=== PATIENT | female | born 1945 | race Caucasian/White ===

== ENCOUNTER 2018-03-27 13:52 | Emergency (ER) | payer BC, MEDICARE ==
[2018-03-27 14:09] VITALS: TEMP 98.3; O2SAT 100
[2018-03-27] MEDS ORDERED: MORPHINE SULFATE INJ 10 MG/ML VIAL IM ONE (14:17)
--- NOTE | 2018-03-27 14:21 | ED.PDOC ---
History of Present Illness - General Chief Complaint: Trauma Stated Complaint: s/p fall Time Seen by Provider: 03/27/18 14:16 Source: patient Exam Limitations: clinical condition - PT CHRONIC VENT, UNABLE TO VERBALLY COMMUNICATE - History of Present Illness Initial Comments: PT WAS BEING ASSISTED TO BEDSIDE TOILET BY STAFF WHEN SHE FELL ACCORDING TO NURSING REPORT. C/O PAIN TO R ARM AND KNEE, NO LOC Severity: mild Improving Factors: nothing Worsening Factors: movement, other - PALPATION Associated Symptoms: denies symptoms Allergies/Adverse Reactions: Allergies Codeine Allergy (Verified 01/06/16 05:22) Sulfa Antibiotics Allergy (Verified 01/06/16 05:22) Home Medications: Ambulatory Orders ALPRAZolam [Xanax] 0.5 mg PEG BID 12/19/15 Acetaminophen [Acetaminophen ER] 650 mg PEG Q6H PRN 12/19/15 Benzonatate 100 mg PEG TID PRN 12/19/15 Bisacodyl [Dulcolax] 10 mg VT DAILY PRN 12/19/15 Bupropion HCl [Bupropion HCl Sr] 150 mg PEG DAILY 12/19/15 Diphenhydramine HCl 25 mg PEG Q6H PRN 12/19/15 Famotidine 20 mg PEG BID 12/19/15 Furosemide 40 mg PEG DAILY 12/19/15 Insulin Aspart [Novolog] 100 unit SC Q6H 12/19/15 Melatonin 5 mg PEG BEDTIME 12/19/15 Metoclopramide HCl 5 mg PEG Q6H 12/19/15 Metoprolol Tartrate 25 mg PEG BID 12/19/15 Polyvinyl Alcohol [Artificial Tears] 1.4 % OP QID PRN 12/19/15 Pravastatin Sodium [Pravachol] 20 mg PEG BEDTIME 12/19/15 Quetiapine Fumarate 50 mg PEG .0800/1400 12/19/15 Sertraline HCl [Zoloft] 100 mg PEG DAILY 12/19/15 Sucralfate 1 gm PEG Q6H 12/19/15 Theophylline 37.5 ml PEG BID 12/19/15 Tramadol HCl 50 mg PEG Q8H PRN 12/19/15 predniSONE [Prednisone] 10 mg PEG DAILY 12/19/15 Budesonide Nebs [Pulmicort Respules] 0.5 mg NEB BID 03/27/18 Chlorhexidine Gluconate (Mouth [Chlorhexidine Gluconate] 15 ml MT Q4H 03/27/18 Docusate Sodium 100 mg PEG DAILY 03/27/18 Levalbuterol Nebs [Xopenex NEBS] 0.63 mg NEB Q3H PRN 03/27/18 Levalbuterol Nebs [Xopenex NEBS] 1.25 mg NEB Q6H 03/27/18 Lidocaine HCl (Cardiac) [Lidocaine HCl] 20 mg IV Q6H PRN 03/27/18 Loratadine [Claritin] 10 mg PEG DAILY 03/27/18 Magnesium Hydroxide [Milk Of Magnesia] 30 ml PEG DAILY PRN 03/27/18 Meloxicam 15 mg PEG BEDTIME 03/27/18 Multiple Vitamins W/ Minerals [Multivitamin Adults] 1 tab PEG DAILY 03/27/18 Nystatin (Topical) [Nystatin] 100,000 unit EX BID 03/27/18 Nystatin (Topical) [Nystatin] 100,000 unit EX Q6H PRN 03/27/18 Potassium Chloride Elixir [Kaochlor Liquid] 7.5 ml PEG BID 03/27/18 Promethazine HCl 25 mg PEG Q8H PRN 03/27/18 Sennosides [Senokot] 8.6 mg PEG JOAQUIN-OTH-DAY 03/27/18 Review of Systems - Review of Systems Constitutional: States: no symptoms reported EENTM: States: no symptoms reported Respiratory: Denies: short of breath Cardiology: Denies: chest pain Gastrointestinal/Abdominal: Denies: abdominal pain Genitourinary: States: no symptoms reported Musculoskeletal: States: joint pain. Denies: back pain, neck pain Skin: States: other - BRUISING Neurological: States: no symptoms reported Endocrine: States: no symptoms reported Hematologic/Lymphatic: States: no symptoms reported Unable to Obtain Due To: other - ROS MAY BE LIMITED PT IS NON VERBAL SECONDARY TO VENT Past Medical History (General) - Patient Medical History Hx Seizures: Yes Hx Stroke: No Hx Dementia: Yes Hx Asthma: No Hx of COPD: Yes Hx Cardiac Disorders: No Hx Congestive Heart Failure: No Hx Pacemaker: No Hx Hypertension: Yes Hx Thyroid Disease: No Hx Diabetes: Yes Hx Gastroesophageal Reflux: Yes - g-tube in place Hx Renal Disease: No Hx Cancer: No Hx of HIV: No Hx Hepatitis C: No Hx MRSA: No Surgical History: appendectomy, Hysterectomy - Vaccination History Hx Influenza Vaccination: Yes Hx Pneumococcal Vaccination: Yes - Social History Hx Tobacco Use: Yes Hx Chewing Tobacco Use: No Hx Alcohol Use: No Hx Substance Use: No Hx Substance Use Treatment: No Hx Depression: No Hx Physical Abuse: No Hx Emotional Abuse: No Hx Suspected Abuse: No - Activities of Daily Living Assisted/Assisted Living (if applicable):: Fernando Kim - Female History Patient : No Family Medical History - Family History Mother Family History: Unknown Living Status: Unknown Physical Exam - Physical Exam General Appearance: Alert, No apparent distress, Obese Eye Exam: bilateral normal Ears, Nose, Throat: hearing grossly normal, normal ENT inspection Neck: non-tender, full range of motion, supple Respiratory: lungs clear - WITH VENT Cardiovascular/Chest: regular rate, rhythm, no murmur Peripheral Pulses: dorsalis pedis,right: 1+, posterior tibialis,right: 1+ Gastrointestinal/Abdominal: non tender, soft, no organomegaly Extremity: other - BRUISING AND TTP R UPPER ARM. NO FOREARM TTP, NVI, ECCHYMOSIS AND SWELLING TO R MEDIAL KNEE, DISTAL FEMUR AND PROXIMAL TIBIA. 2+ PITTING EDEMA, NVI Neurologic: no motor/sensory deficits, alert, normal mood/affect Skin Exam: other - ECCHYMOSIS NOTED ABOVE Lymphatic: no adenopathy Progress - EKG/XRAY/CT XRAY: pelvis - BARON Xray Comments: CXR, HUMERUS, ELBOW, FEMUR, TIB/FIB BARON Departure - Departure Clinical Impression: Contusion of knee, right Qualifiers: Encounter type: initial encounter Qualified Code(s): S80.01XA - Contusion of right knee, initial encounter Contusion, upper arm Qualifiers: Encounter type: initial encounter Laterality: right Qualified Code(s): S40.021A - Contusion of right upper arm, initial encounter Time of Disposition: 16:49 Disposition: Discharge to Home or Self Care Departure Forms: ED Discharge - Pt. Copy, Patient Portal Self Enrollment Instructions: DI for Trauma, Contusion (DC) Referrals: LEONARDO LAGUNAS [Primary Care Provider] - 1-2 Weeks Home Medications: Ambulatory Orders ALPRAZolam [Xanax] 0.5 mg PEG BID 12/19/15 Acetaminophen [Acetaminophen ER] 650 mg PEG Q6H PRN 12/19/15 Benzonatate 100 mg PEG TID PRN 12/19/15 Bisacodyl [Dulcolax] 10 mg VT DAILY PRN 12/19/15 Bupropion HCl [Bupropion HCl Sr] 150 mg PEG DAILY 12/19/15 Diphenhydramine HCl 25 mg PEG Q6H PRN 12/19/15 Famotidine 20 mg PEG BID 12/19/15 Furosemide 40 mg PEG DAILY 12/19/15 Insulin Aspart [Novolog] 100 unit SC Q6H 12/19/15 Melatonin 5 mg PEG BEDTIME 12/19/15 Metoclopramide HCl 5 mg PEG Q6H 12/19/15 Metoprolol Tartrate 25 mg PEG BID 12/19/15 Polyvinyl Alcohol [Artificial Tears] 1.4 % OP QID PRN 12/19/15 Pravastatin Sodium [Pravachol] 20 mg PEG BEDTIME 12/19/15 Quetiapine Fumarate 50 mg PEG .0800/1400 12/19/15 Sertraline HCl [Zoloft] 100 mg PEG DAILY 12/19/15 Sucralfate 1 gm PEG Q6H 12/19/15 Theophylline 37.5 ml PEG BID 12/19/15 Tramadol HCl 50 mg PEG Q8H PRN 12/19/15 predniSONE [Prednisone] 10 mg PEG DAILY 12/19/15 Budesonide Nebs [Pulmicort Respules] 0.5 mg NEB BID 03/27/18 Chlorhexidine Gluconate (Mouth [Chlorhexidine Gluconate] 15 ml MT Q4H 03/27/18 Docusate Sodium 100 mg PEG DAILY 03/27/18 Levalbuterol Nebs [Xopenex NEBS] 0.63 mg NEB Q3H PRN 03/27/18 Levalbuterol Nebs [Xopenex NEBS] 1.25 mg NEB Q6H 03/27/18 Lidocaine HCl (Cardiac) [Lidocaine HCl] 20 mg IV Q6H PRN 03/27/18 Loratadine [Claritin] 10 mg PEG DAILY 03/27/18 Magnesium Hydroxide [Milk Of Magnesia] 30 ml PEG DAILY PRN 03/27/18 Meloxicam 15 mg PEG BEDTIME 03/27/18 Multiple Vitamins W/ Minerals [Multivitamin Adults] 1 tab PEG DAILY 03/27/18 Nystatin (Topical) [Nystatin] 100,000 unit EX BID 03/27/18 Nystatin (Topical) [Nystatin] 100,000 unit EX Q6H PRN 03/27/18 Potassium Chloride Elixir [Kaochlor Liquid] 7.5 ml PEG BID 03/27/18 Promethazine HCl 25 mg PEG Q8H PRN 03/27/18 Sennosides [Senokot] 8.6 mg PEG JOAQUIN-OTH-DAY 03/27/18
--- NOTE | 2018-03-27 15:17 | RAD ---
EXAM DESCRIPTION: Femur,Right CLINICAL HISTORY: 72 years Female, FALL WHILE GETTING UP TO BEDSIDE TOILET COMPARISON: None. FINDINGS: Two views of the right femur demonstrate extensive subcutaneous edema and swelling in the prepatellar region above and below the knee joint. The patella as well as the femur appear intact. No fracture or dislocation is seen. IMPRESSION: Soft tissue swelling anteriorly at the knee with intact femur Electronically signed by: Chun Prasad MD 03/27/2018 3:16 PM [facility]
--- NOTE | 2018-03-27 15:18 | RAD ---
EXAM DESCRIPTION: Chest,1 View CLINICAL HISTORY: 72 years Female, FALL WHILE GETTING UP TO BEDSIDE TOILET COMPARISON: None. TECHNIQUE: AP portable chest. FINDINGS: Fair expansion of the lungs is evident without consolidation, layering effusion, or large mass. Heart size and vascularity appear normal for AP technique and degree of inspiration. No gross bony, hilar, or mediastinal abnormalities are noted. IMPRESSION: Normal chest, one view Electronically signed by: Chun Prasad MD 03/27/2018 3:16 PM [facility] [employer]
--- NOTE | 2018-03-27 15:20 | RAD ---
EXAM DESCRIPTION: Humerus,Right CLINICAL HISTORY: 72 years Female, FALL WHILE GETTING UP TO BEDSIDE TOILET COMPARISON: None. FINDINGS: Advanced degenerative changes involving the proximal humeral head is present with narrowing of the subacromial space AC joint arthropathy and advanced glenohumeral degenerative changes. The humeral shaft is intact. Distal humerus in the region of the elbow particularly in the region of the lateral humeral epicondyles and articular surface demonstrates subtle lucency and is suspicious for a nondisplaced fracture at the elbow. A formal three view elbow series including a high quality true lateral view of the elbow to assess for hemarthrosis is recommended. IMPRESSION: 1. Abnormal distal humerus with some lucency overlying the lateral humeral epicondyles suspicious for either a skinfold or nondisplaced fracture. A formal elbow series recommended. 2. Advanced degenerative changes of the proximal humerus and humeral head without fracture of the humeral shaft Electronically signed by: Chun Prasad MD 03/27/2018 3:19 PM [employer]
--- NOTE | 2018-03-27 15:21 | RAD ---
EXAM DESCRIPTION: Pelvis CLINICAL HISTORY: 72 years Female, FALL WHILE GETTING UP TO BEDSIDE TOILET COMPARISON: None. FINDINGS: A single view of the pelvis is limited in quality by the patient's large size and overlying soft tissues. Bony pelvic ring appears intact and no gross injury or abnormality of the iliac wings or superior and inferior pubic rami noted. The hips appear normally aligned. IMPRESSION: Negative pelvis one view. Electronically signed by: Chun Prasad MD 03/27/2018 3:20 PM [facility]
--- NOTE | 2018-03-27 15:22 | RAD ---
EXAM DESCRIPTION: Tibia/Fibula,Right CLINICAL HISTORY: 72 years Female, FALL WHILE GETTING UP TO BEDSIDE TOILET COMPARISON: None FINDINGS: Soft tissue swelling and subcutaneous edema and possibly a subcutaneous hematoma the lateral aspect of the knee is evident. Tibia and fibula are osteopenic. No underlying fracture or deformity is seen. IMPRESSION: Soft tissue swelling and subcutaneous hematoma the lateral aspect of the knee. Osteopenic leg without acute fracture. Electronically signed by: Chun Prasad MD 03/27/2018 3:21 PM [facility]
--- NOTE | 2018-03-27 16:29 | RAD ---
EXAM: Elbow,Right 2 Views CLINICAL INDICATION: 72-year-old female with pain status post fall. TECHNIQUE: Two views of the RIGHT elbow were obtained in AP, and lateral projections. COMPARISON: None. FINDINGS: There is no fracture or dislocation. The joint spaces are preserved. Reticulation of the soft tissues may reflect sequela of trauma. IMPRESSION: Reticulation of the soft tissues may reflect sequela of trauma without fracture or dislocation. Electronically signed by: Merced Lemus MD 03/27/2018 4:28 PM [facility]
[2018-03-27 17:10] VITALS: BP 136/81
== END 2018-03-27 17:10 | disposition home or self-care (01) ==
LOC: ER 13:52
DX: S80.01XA Contusion of right knee, initial encounter (principal); S40.021A Contusion of right upper arm, initial encounter; Z99.11 Dependence on respirator [ventilator] status; J44.9 Chronic obstructive pulmonary disease, unspecified; I10 Essential (primary) hypertension; E11.9 Type 2 diabetes mellitus without complications; K21.9 Gastro-esophageal reflux disease without esophagitis; F03.90 Unspecified dementia, unspecified severity, without behavioral disturbance, psychotic disturbance, mood disturbance, and anxiety; Z87.891 Personal history of nicotine dependence; Z79.899 Other long term (current) drug therapy; Z88.5 Allergy status to narcotic agent; Z88.2 Allergy status to sulfonamides; W18.39XA Other fall on same level, initial encounter; Y92.129 Unspecified place in nursing home as the place of occurrence of the external cause
CPT/HCPCS: 71045; 72170; 73060; 73070; 73551; 73590; 94002; J2270

== ENCOUNTER 2018-10-20 22:58 | Emergency (ER) | payer BC, MEDICARE ==
--- NOTE | 2018-10-20 23:18 | ED.PDOC ---
History of Present Illness - General Chief Complaint: General Stated Complaint: WEAKNESS Time Seen by Provider: 10/20/18 23:11 Source: EMS notes reviewed, family - History of Present Illness Initial Comments: THIS PATIENT CFOMES MIGUEL JALLOH, A VENTED PATIENT THAT IS USUALLY ALERT AND HELPFUL TO GO TO THE BATHROOM. TODAY SHE WAS PLACED IN A BEDSIDE COMODE AND SHE FELL AND INJURED THE RIGHT KNEE AND ALSO SUSTAINED A SKIN TEAR ON THE LEFT WRIST. THE MEDICS ALSO NOTED THAT SHE HAS A FEVER OF 103 DEGREES. THE PATIENT VOICES THAT SHE HAS VOMITED TODAY. Occurred: this evening Severity: moderate Injuries/Pain Location: lower extremity Reason for Fall: lightheaded, other - WEAKNESS Loss of Consciousness: no loss of consciousness Improving Factors: nothing Worsening Factors: nothing Associated Symptoms (Fall): nausea/vomiting Allergies/Adverse Reactions: Allergies Codeine Allergy (Verified 01/06/16 05:22) Sulfa Antibiotics Allergy (Verified 01/06/16 05:22) Home Medications: Ambulatory Orders ALPRAZolam [Xanax] 0.5 mg PEG BID 12/19/15 Acetaminophen [Acetaminophen ER] 650 mg PEG Q6H PRN 12/19/15 Benzonatate 100 mg PEG TID PRN 12/19/15 Bisacodyl [Dulcolax] 10 mg AL DAILY PRN 12/19/15 Bupropion HCl [Bupropion HCl Sr] 150 mg PEG DAILY 12/19/15 Diphenhydramine HCl 25 mg PEG Q6H PRN 12/19/15 Famotidine 20 mg PEG BID 12/19/15 Furosemide 40 mg PEG DAILY 12/19/15 Insulin Aspart [Novolog] 100 unit SC Q6H 12/19/15 Melatonin 5 mg PEG BEDTIME 12/19/15 Metoclopramide HCl 5 mg PEG Q6H 12/19/15 Metoprolol Tartrate 25 mg PEG BID 12/19/15 Polyvinyl Alcohol [Artificial Tears] 1.4 % OP QID PRN 12/19/15 Pravastatin Sodium [Pravachol] 20 mg PEG BEDTIME 12/19/15 Quetiapine Fumarate 50 mg PEG .0800/1400 12/19/15 Sertraline HCl [Zoloft] 100 mg PEG DAILY 12/19/15 Sucralfate 1 gm PEG Q6H 12/19/15 Theophylline 37.5 ml PEG BID 12/19/15 Tramadol HCl 50 mg PEG Q8H PRN 12/19/15 predniSONE [Prednisone] 10 mg PEG DAILY 12/19/15 Budesonide Nebs [Pulmicort Respules] 0.5 mg NEB BID 03/27/18 Chlorhexidine Gluconate (Mouth [Chlorhexidine Gluconate] 15 ml MT Q4H 03/27/18 Docusate Sodium 100 mg PEG DAILY 03/27/18 Levalbuterol Nebs [Xopenex NEBS] 0.63 mg NEB Q3H PRN 03/27/18 Levalbuterol Nebs [Xopenex NEBS] 1.25 mg NEB Q6H 03/27/18 Lidocaine HCl (Cardiac) [Lidocaine HCl] 20 mg IV Q6H PRN 03/27/18 Loratadine [Claritin] 10 mg PEG DAILY 03/27/18 Magnesium Hydroxide [Milk Of Magnesia] 30 ml PEG DAILY PRN 03/27/18 Meloxicam 15 mg PEG BEDTIME 03/27/18 Multiple Vitamins W/ Minerals [Multivitamin Adults] 1 tab PEG DAILY 03/27/18 Nystatin (Topical) [Nystatin] 100,000 unit EX BID 03/27/18 Nystatin (Topical) [Nystatin] 100,000 unit EX Q6H PRN 03/27/18 Potassium Chloride Elixir [Kaochlor Liquid] 7.5 ml PEG BID 03/27/18 Promethazine HCl 25 mg PEG Q8H PRN 03/27/18 Sennosides [Senokot] 8.6 mg PEG JOAQUIN-OTH-DAY 03/27/18 Review of Systems - Review of Systems Constitutional: States: fever, weakness EENTM: States: no symptoms reported Respiratory: States: no symptoms reported, short of breath, other - ON A VENT Cardiology: States: no symptoms reported Gastrointestinal/Abdominal: States: no symptoms reported Genitourinary: States: no symptoms reported Musculoskeletal: States: joint pain, joint swelling Skin: States: other - SKIN TEAR Neurological: States: no symptoms reported Hematologic/Lymphatic: States: no symptoms reported Past Medical History (General) - Patient Medical History Hx Seizures: Yes Hx Stroke: No Hx Dementia: Yes Hx Asthma: No Hx of COPD: Yes Hx Cardiac Disorders: No Hx Congestive Heart Failure: No Hx Pacemaker: No Hx Hypertension: Yes Hx Thyroid Disease: No Hx Diabetes: Yes Hx Gastroesophageal Reflux: Yes - g-tube in place Hx Renal Disease: No Hx Cancer: No Hx of HIV: No Hx Hepatitis C: No Hx MRSA: No - Vaccination History Hx Influenza Vaccination: Yes Hx Pneumococcal Vaccination: Yes - Social History Hx Tobacco Use: Yes Hx Chewing Tobacco Use: No Hx Alcohol Use: No Hx Substance Use: No Hx Substance Use Treatment: No Hx Depression: No Hx Physical Abuse: No Hx Emotional Abuse: No Hx Suspected Abuse: No - Female History Patient : No Physical Exam - Physical Exam General Appearance: Alert, Obese, Well Developed, Well Hydrated Head Injury: no evidence of injury Eye Exam: bilateral normal ENT Exam: hearing grossly normal, no evidence of ENT injury Peripheral Pulses: radial,right: 2+, radial,left: 2+ Cardiovascular/Respiratory: regular rate, rhythm, no M/R/G, normal peripheral pulses, no JVD, tachycardia, other - THE ATIENT ON A VENT. RHONCHI NOTED ON THE LEFT UPPER L[place]. Gastrointestinal/Abdominal: normal bowel sounds, soft, no organomegaly, distended Extremity Exam: other - SKIN TEAR, BRUISING AND SWELLING TO THE RIGHT KNEE, GOOD ROM. SKIN TEAR TO THE LEFT WRIST Neurologic: alert, normal mood/affect Skin Exam: normal color Progress - Progress Progress: 10/21/18 02:09 10/20/18 22:55 CBC (AUTOMATED) W/AUTO DIFF Stat DIFFERENTIAL,MANUAL BY FLAGS Stat Laboratory Results WBC 23.5 K/mm3 (4.8-10.8) H* 10/20/18 22:55 RBC 4.40 M/mm3 (4.20-5.40) 10/20/18 22:55 Hgb 11.3 gm/dL (12.0-16.0) L 10/20/18 22:55 Hct 35.3 % (36.0-47.0) L 10/20/18 22:55 MCV 80.3 fl (81.0-99.0) L 10/20/18 22:55 MCH 25.6 pg (27.0-31.0) L 10/20/18 22:55 MCHC 31.9 g/dL (33.0-37.0) L 10/20/18 22:55 RDW 18.6 % (11.5-14.5) H 10/20/18 22:55 Plt Count 254 K/mm3 (130-400) 10/20/18 22:55 MPV 7.0 fl (7.40-10.4) L 10/20/18 22:55 Absolute Neuts (auto) 20.20 K/uL (1.8-6.8) H 10/20/18 22:55 Absolute Lymphs (auto) 1.80 K/uL (1.0-3.4) 10/20/18 22:55 Absolute Monos (auto) 1.20 K/uL (0.2-0.8) H 10/20/18 22:55 Absolute Eos (auto) 0.10 K/uL (0.0-0.4) 10/20/18 22:55 Absolute Basos (auto) 0.10 K/uL (0.0-0.1) 10/20/18 22:55 Neutrophils % 86.2 % (42.0-78.0) H 10/20/18 22:55 Lymphocytes % 7.7 % (20.0-50.0) L 10/20/18 22:55 Monocytes % 5.1 % (2.0-9.0) 10/20/18 22:55 Eosinophils % 0.4 % (1.0-5.0) L 10/20/18 22:55 Basophils % 0.6 % (0.0-2.0) 10/20/18 22:55 pCO2 60 mmHg (32-45) H 10/20/18 23:55 pO2 97 mmHg (83-108) 10/20/18 23:55 HCO3 31.9 mmol/L 10/20/18 23:55 ABG pH 7.350 (7.35-7.45) 10/20/18 23:55 ABG O2 Saturation 98.1 % (95.0-99.0) 10/20/18 23:55 ABG Base Excess 5.4 mmol/L 10/20/18 23:55 ABG Deoxyhemoglobin 1.9 % (0.0-5.0) 10/20/18 23:55 Oxyhemoglobin % 95.7 % (94.0-98.0) 10/20/18 23:55 Carboxyhemoglobin % 0.0 % (0.5-1.5) L 10/20/18 23:55 Methemoglobin % Sat 2.4 % (0.0-1.5) H 10/20/18 23:55 Calc Total Hemoglobin 10.3 g/dL (12.0-16.0) L 10/20/18 23:55 Sodium 134 mmol/L (135-145) L 10/20/18 22:55 Potassium 3.5 mmol/L (3.6-5.0) L 10/20/18 22:55 Chloride 95 mmol/L (101-111) L 10/20/18 22:55 Carbon Dioxide 28 mmol/L (21-31) 10/20/18 22:55 Anion Gap 14.5 (12-18) 10/20/18 22:55 BUN 13 mg/dL (7-18) 10/20/18 22:55 Creatinine 1.31 mg/dL (0.6-1.3) H 10/20/18 22:55 BUN/Creatinine Ratio 9.9 (10-20) L 10/20/18 22:55 Random Glucose 159 mg/dL (70-105) H 10/20/18 22:55 Serum Osmolality 271.7 mOsm/L (275-295) L 10/20/18 22:55 Lactic Acid 1.0 mmol/L (0.5-2.2) 10/20/18 23:11 Calcium 8.8 mg/dL (8.4-10.2) 10/20/18 22:55 Total Bilirubin 0.6 mg/dL (0.2-1.0) 10/20/18 22:55 AST 32 IU/L (10-42) 10/20/18 22:55 ALT 20 IU/L (10-60) 10/20/18 22:55 Alkaline Phosphatase 54 IU/L (42-121) 10/20/18 22:55 B-Natriuretic Peptide 340.0 pg/ml (0-100) H* 10/20/18 22:55 Serum Total Protein 7.2 gm/dL (6.4-8.2) 10/20/18 22:55 Albumin 3.7 g/dl (3.2-5.5) 10/20/18 22:55 Globulin 3.5 gm/dL (2.3-3.5) 10/20/18 22:55 Albumin/Globulin Ratio 1.1 (1.1-1.9) 10/20/18 22:55 Urine Color Yellow (Yellow) 10/21/18 00:40 Urine Appearance Clear (Clear) 10/21/18 00:40 Urine pH 7.5 (4.5-7.8) 10/21/18 00:40 Ur Specific [place] 1.020 (1.005-1.030) 10/21/18 00:40 Urine Protein 30 mg/dL 10/21/18 00:40 Urine Glucose (UA) Negative mg/dL (Negative) 10/21/18 00:40 Urine Ketones Negative mg/dL (NEGATIVE) 10/21/18 00:40 Urine Blood Negative (Negative) 10/21/18 00:40 Urine Nitrite Negative 10/21/18 00:40 Urine Bilirubin Negative (NEGATIVE) 10/21/18 00:40 Urine Urobilinogen 0.2 mg/dL (0.2-1.0) 10/21/18 00:40 Ur Leukocyte Esterase Negative (Negative) 10/21/18 00:40 Urine RBC 0 /hpf 10/21/18 00:40 Urine WBC 0 /hpf 10/21/18 00:40 Ur Epithelial Cells 0 /hpf 10/21/18 00:40 Urine Bacteria 0 10/21/18 00:40 10/21/18 02:10 THE CXR AND THE URINE WERE NORMAL. I HAVE LOGGED ROLL THE PATIENT AND THERE ARE NO PRESSURE WOUND NOTED, BUT IT IS NOTED THAT ON THE LEFT ANDOMINAL AND LEFT FLANK THERE IS A CELULLITIS, MOST LIKELY THE SOURCE OF THE FEVER. Departure - Departure Clinical Impression: Cellulitis, abdominal wall Time of Disposition: 02:15 Disposition: Discharge to SNF Condition: Fair Departure Forms: ED Discharge - Pt. Copy, Patient Portal Self Enrollment Referrals: LEONARDO LAGUNAS [Primary Care Provider] - 1-2 Weeks Home Medications: Ambulatory Orders ALPRAZolam [Xanax] 0.5 mg PEG BID 12/19/15 Acetaminophen [Acetaminophen ER] 650 mg PEG Q6H PRN 12/19/15 Benzonatate 100 mg PEG TID PRN 12/19/15 Bisacodyl [Dulcolax] 10 mg AL DAILY PRN 12/19/15 Bupropion HCl [Bupropion HCl Sr] 150 mg PEG DAILY 12/19/15 Diphenhydramine HCl 25 mg PEG Q6H PRN 12/19/15 Famotidine 20 mg PEG BID 12/19/15 Furosemide 40 mg PEG DAILY 12/19/15 Insulin Aspart [Novolog] 100 unit SC Q6H 12/19/15 Melatonin 5 mg PEG BEDTIME 12/19/15 Metoclopramide HCl 5 mg PEG Q6H 12/19/15 Metoprolol Tartrate 25 mg PEG BID 12/19/15 Polyvinyl Alcohol [Artificial Tears] 1.4 % OP QID PRN 12/19/15 Pravastatin Sodium [Pravachol] 20 mg PEG BEDTIME 12/19/15 Quetiapine Fumarate 50 mg PEG .0800/1400 12/19/15 Sertraline HCl [Zoloft] 100 mg PEG DAILY 12/19/15 Sucralfate 1 gm PEG Q6H 12/19/15 Theophylline 37.5 ml PEG BID 12/19/15 Tramadol HCl 50 mg PEG Q8H PRN 12/19/15 predniSONE [Prednisone] 10 mg PEG DAILY 12/19/15 Budesonide Nebs [Pulmicort Respules] 0.5 mg NEB BID 03/27/18 Chlorhexidine Gluconate (Mouth [Chlorhexidine Gluconate] 15 ml MT Q4H 03/27/18 Docusate Sodium 100 mg PEG DAILY 03/27/18 Levalbuterol Nebs [Xopenex NEBS] 0.63 mg NEB Q3H PRN 03/27/18 Levalbuterol Nebs [Xopenex NEBS] 1.25 mg NEB Q6H 03/27/18 Lidocaine HCl (Cardiac) [Lidocaine HCl] 20 mg IV Q6H PRN 03/27/18 Loratadine [Claritin] 10 mg PEG DAILY 03/27/18 Magnesium Hydroxide [Milk Of Magnesia] 30 ml PEG DAILY PRN 03/27/18 Meloxicam 15 mg PEG BEDTIME 03/27/18 Multiple Vitamins W/ Minerals [Multivitamin Adults] 1 tab PEG DAILY 03/27/18 Nystatin (Topical) [Nystatin] 100,000 unit EX BID 03/27/18 Nystatin (Topical) [Nystatin] 100,000 unit EX Q6H PRN 03/27/18 Potassium Chloride Elixir [Kaochlor Liquid] 7.5 ml PEG BID 03/27/18 Promethazine HCl 25 mg PEG Q8H PRN 03/27/18 Sennosides [Senokot] 8.6 mg PEG JOAQUIN-OTH-DAY 03/27/18 Additional Instructions: ZOSYN 3.375 IVPG Q 6 HRS VANCOMYCIN 100 MG IVPB Q 12 HRS.
[2018-10-20] MEDS ORDERED: ONDANSETRON INJ 4 MG/2 ML VIAL ONE (23:42)
[2018-10-20] MEDS ORDERED: ONDANSETRON INJ 4 MG/2 ML VIAL IV ONE (23:46)
--- NOTE | 2018-10-20 23:54 | RAD ---
EXAM DESCRIPTION: AP view of the chest CLINICAL HISTORY:73 years Female, fever Comparison: March 27, 2018 FINDINGS: The lungs are hyperexpanded. Diffuse prominence of the pulmonary interstitium is unchanged likely related to chronic lung disease. No focal pulmonary opacities. No pleural abnormalities. The cardiac silhouette is normal in size. Tracheostomy tube is noted. IMPRESSION: No acute cardiopulmonary disease. Electronically signed by: Ran Ferguson DO 10/20/2018 11:52 PM CDT
--- NOTE | 2018-10-20 23:58 | RAD ---
EXAM: 3 VIEWS LEFT KNEE RADIOGRAPHS CLINICAL INDICATION: Pain and fever. COMPARISON: No comparisons are available. FINDINGS: Severe medial joint compartment and patellofemoral joint compartment degenerative disease. No fractures, dislocations or osteochondritis dissecans. Extensive medial anterior subcutaneous soft tissue swelling adjacent to the right knee without radiopaque soft tissue foreign body or soft tissue gas. IMPRESSION: 1. Extensive subcutaneous soft tissue swelling without radiopaque foreign body or soft tissue gas. 2. 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 3. No fractures or dislocations. Electronically signed by: Colin Brown MD 10/20/2018 11:55 PM CDT
[2018-10-21] MEDS ORDERED: ACETAMINOPHEN LIQUID 160 MG/5 ML UD GT ONE (00:11)
[2018-10-21] MEDS ORDERED: PIPERACILLIN/TAZOBACTAM 3.375 GM in SODIUM CHLORIDE 0.9% 100ML 100 ML IVPB ONE (02:11)
[2018-10-21] MEDS ORDERED: VANCOMYCIN HCL INJ 1,000 MG in SODIUM CHLORIDE 0.9% 250ML 250 ML IVPB ONE (02:11)
[2018-10-21] MEDS ORDERED: SODIUM CHLORIDE 0.9% 100ML 100 ML IVPB ONE (02:27)
[2018-10-21] MEDS ORDERED: PIPERACILLIN/TAZOBACTAM 3.375 GM VIAL IVPB ONE (02:27)
[2018-10-21] MEDS ORDERED: VANCOMYCIN HCL INJ 1,000 MG VIAL IVPB ONE (03:33)
[2018-10-21] MEDS ORDERED: SODIUM CHLORIDE 0.9% 250ML 250 ML ONE (03:34)
[2018-10-21 04:49] VITALS: BP 133/61; TEMP 102.1; O2SAT 95
== END 2018-10-21 04:05 ==
LOC: ER 22:58
DX: L03.311 Cellulitis of abdominal wall (principal); S81.011A Laceration without foreign body, right knee, initial encounter; S61.512A Laceration without foreign body of left wrist, initial encounter; R11.2 Nausea with vomiting, unspecified; R56.9 Unspecified convulsions; F03.90 Unspecified dementia, unspecified severity, without behavioral disturbance, psychotic disturbance, mood disturbance, and anxiety; J44.9 Chronic obstructive pulmonary disease, unspecified; I10 Essential (primary) hypertension; E11.9 Type 2 diabetes mellitus without complications; K21.9 Gastro-esophageal reflux disease without esophagitis; Z87.891 Personal history of nicotine dependence; Z99.11 Dependence on respirator [ventilator] status; Z93.1 Gastrostomy status; Z79.899 Other long term (current) drug therapy; Z79.4 Long term (current) use of insulin; Z88.5 Allergy status to narcotic agent; Z88.2 Allergy status to sulfonamides; W18.11XA Fall from or off toilet without subsequent striking against object, initial encounter; Y92.129 Unspecified place in nursing home as the place of occurrence of the external cause
CPT/HCPCS: 36600; 71045; 73562; 80053; 81001; 82803; 82805; 83605; 83880; 85025; 87040; 94002; J2405; J2543; J3370; J7050

== ENCOUNTER 2018-12-08 16:05 | Emergency (ER) | payer BC, MEDICARE ==
[2018-12-08] MEDS ORDERED: IPRATROPIUM BROMIDE NEBS 0.5 MG/2.5 ML VIAL NEB ONE (16:19)
[2018-12-08] MEDS ORDERED: methylPREDNISolone SODIUM SUC 125 MG/2 ML VIAL IV ONE (16:19)
[2018-12-08] MEDS ORDERED: LEVALBUTEROL NEBS 1.25 MG/3 ML VIAL NEB ONE ×2 (16:19→19:35)
--- NOTE | 2018-12-08 16:44 | RAD ---
EXAM DESCRIPTION: Chest,1 View CLINICAL HISTORY: 73 years Female vent, sob, fever COMPARISON: October 20, 2018. TECHNIQUE: AP view of the chest was obtained. FINDINGS: Tracheostomy tube is present with the tip seen at the T4 level. Possible overlying artifact. Right paratracheal soft tissue swelling. Cardiac size is within normal limits. Central vessels are indistinct. Patchy airspace opacities lower lungs bilaterally increased. Suspected small bilateral pleural effusions increased. No pneumothorax. IMPRESSION: Density in region of tracheostomy tube possibly artifact. Clinical correlation needed. Recent contrast injection not excluded. Right paratracheal soft tissue swelling. Increasing infiltrate versus atelectatic change or pulmonary congestion lower lungs bilaterally. Electronically signed by: Mindy Pagan MD 12/08/2018 4:42 PM CDT
[2018-12-08] MEDS ORDERED: IBUPROFEN 200 MG TAB GT ONE (16:46)
[2018-12-08] MEDS ORDERED: ACETYLCYSTEIN 20 % 6,000 MG/30 ML VIAL NEB ONE (16:46)
[2018-12-08] MEDS ORDERED: CEFEPIME 1 GM in SODIUM CHLORIDE 0.9% 50ML 50 ML IVPB ONE (19:35)
[2018-12-08] MEDS ORDERED: AZITHROMYCIN IV 500 MG in SODIUM CHLORIDE 0.9% 250ML 250 ML IVPB ONE (19:35)
[2018-12-08] MEDS ORDERED: SODIUM CHLORIDE 0.9% 50ML 50 ML ONE (19:45)
[2018-12-08] MEDS ORDERED: SODIUM CHLORIDE 0.9% 250ML 250 ML ONE (19:45)
[2018-12-08] MEDS ORDERED: AZITHROMYCIN IV 500 MG VIAL IVPB ONE (19:45)
[2018-12-08] MEDS ORDERED: CEFEPIME 2 GM VIAL ONE (19:45)
--- NOTE | 2018-12-08 20:08 | CT ---
EXAM DESCRIPTION: Chest w/o Contrast CLINICAL HISTORY: 73 years Female shortness of breath, increased vent pressure TECHNIQUE: CT chest without contrast. Coronal and sagittal reformats performed. All CT scans at this facility use dose modulation, iterative reconstruction, and/or weight based dosing when appropriate to reduce radiation dose to as low as reasonably achievable. COMPARISON: Chest radiograph December 08, 2018. FINDINGS: Chest: Tracheostomy tube in place. Right greater than left groundglass opacities in the bilateral lower lobes. Irregular soft tissue density in the right lung apex medially measuring approximately 3.0 x 1.6 cm. A 0.5 cm nodule in the right upper lobe peripherally and posteriorly axial image 20 series #8. Diffuse emphysematous changes of the lungs. No pneumothorax or pleural effusion. No mediastinal mass or adenopathy. Mediastinal vascular structures are unremarkable. Chronic bilateral rib fractures. Multilevel degenerative changes. IMPRESSION: 1. Right greater than left groundglass opacities in the bilateral lower lobes which are nonspecific but may represent infection in the appropriate clinical setting. 2. Irregular soft tissue mass in the right lung apex measuring 3 cm suspicious for malignancy. 3. Additional 0.5 cm nodule in the right upper lobe. 4. Diffuse infection versus changes of the lungs. Electronically signed by: Aba Kate MD 12/08/2018 8:06 PM CDT
[2018-12-08] MEDS ORDERED: SODIUM CHLORIDE 0.9% 1000ML 500 ML IVS ONE (20:10)
--- NOTE | 2018-12-08 20:19 | CT ---
EXAM DESCRIPTION: Abdomen t/Pelvis w/o Contrast CLINICAL HISTORY: 73 years Female shortness of breath, increased vent pressure, ams TECHNIQUE: Noncontrast CT abdomen and pelvis with coronal and sagittal reformats. All CT scans at this facility use dose modulation, iterative reconstruction, and/or weight based dosing when appropriate to reduce radiation dose to as low as reasonably achievable. COMPARISON: None. FINDINGS: Abdomen: Liver: Unremarkable. Gallbladder: Status post cholecystectomy. Pancreas: Fatty atrophy of the pancreas. Spleen: Calcified granulomas present. Right kidney: Nonspecific mild perinephric stranding. No hydronephrosis. No focal lesion. Left kidney: Nonspecific mild perinephric stranding. No hydronephrosis. No focal lesion. Adrenal glands: Within normal limits Vascular structures: Atherosclerotic calcification of the aorta and its major branches. Pelvis: Bowel: Gastrostomy tube in place. No bowel distention. Appendix: Not seen, however no inflammatory changes in the pericecal region Peritoneum: No free fluid. Focus of gas adjacent to the splenic flexure axial images 25-28 series 3, likely intraluminal. Lymph Nodes: No adenopathy. Reproductive: Status post hysterectomy. Urinary bladder: Urinary bladder is decompressed and a Greer catheter is in place. Osseous structures: Multilevel degenerative changes. Soft tissues: Unremarkable. IMPRESSION: No acute findings. Electronically signed by: Aba Kate MD 12/08/2018 8:17 PM CDT
[2018-12-08] MEDS ORDERED: HEPARIN SODIUM (PORCINE) 5,000 U/ML VIAL IV ONE (20:23)
[2018-12-08] MEDS ORDERED: ASPIRIN TABLET 325 MG TAB GT ONE (20:31)
--- NOTE | 2018-12-08 20:39 | ED.PDOC ---
History of Present Illness - General Chief Complaint: Respiratory Problem Stated Complaint: dyspnea Time Seen by Provider: 12/08/18 16:08 Source: patient Exam Limitations: no limitations - History of Present Illness Initial Comments: the patient's a 73-year-old female being brought in from [facility] secondary to some confusion as well as increased respiratory distress. The patient is breathing rapidly upon arrival here. This apparently started earlier in the day. She does have a low-grade fever. No chest pain according to her. She did receive a little bit of Ativan at the facility prior to arrival here which did make her somewhat drowsy initially. That has worn off over time and the patient is a little more communicative. She indicates no chest pain. No palpitations. No nausea or vomiting. FiO2 requirements did decrease after a couple of breathing treatments however her peak pressures are remaining between 60 and 70 regardless of different ventilator settings that we have tried. We have tried CPT thinking the increased peak pressures may be from a mucous plug along with Mucomyst, Xopenex and ipratropium. The patient does have some edema to her upper extremities which I'm uncertain if this is new or old. I have not seen the patient prior. Severity: moderate Improving Factors: nothing Worsening Factors: nothing Associated Symptoms: shortness of breath - she does have corresponding anxiety. Allergies/Adverse Reactions: Allergies Codeine Allergy (Verified 01/06/16 05:22) Sulfa Antibiotics Allergy (Verified 01/06/16 05:22) Home Medications: Ambulatory Orders Acetaminophen [Acetaminophen ER] 650 mg PEG Q6H PRN 12/19/15 Benzonatate 100 mg PEG TID PRN 12/19/15 Bisacodyl [Dulcolax] 10 mg IN DAILY PRN 12/19/15 Bupropion HCl [Bupropion HCl Sr] 150 mg PEG DAILY 12/19/15 Diphenhydramine HCl 25 mg PEG Q6H PRN 12/19/15 Famotidine 20 mg PEG BID 12/19/15 Furosemide 40 mg PEG DAILY 12/19/15 Insulin Aspart [Novolog] 0 unit SC DAILY 12/19/15 Melatonin 5 mg PEG BEDTIME 12/19/15 Metoprolol Tartrate 25 mg PEG BID 12/19/15 Polyvinyl Alcohol [Artificial Tears] 1.4 % OP Q6H PRN 12/19/15 Pravastatin Sodium [Pravachol] 20 mg PEG BEDTIME 12/19/15 Sertraline HCl [Zoloft] 150 mg PEG DAILY 12/19/15 Sucralfate 1 gm PEG ACHS 12/19/15 Theophylline 37.5 ml PEG BID 12/19/15 Tramadol HCl 50 mg PEG Q8H PRN 12/19/15 predniSONE [Prednisone] 10 mg PEG DAILY 12/19/15 Budesonide Nebs [Pulmicort Respules] 0.5 mg NEB BID 03/27/18 Chlorhexidine Gluconate (Mouth [Chlorhexidine Gluconate] 15 ml MT BID 03/27/18 Docusate Sodium 100 mg PEG DAILY 03/27/18 Lidocaine HCl (Cardiac) [Lidocaine HCl] 20 mg IV Q6H PRN 03/27/18 Loratadine [Claritin] 10 mg PEG DAILY 03/27/18 Magnesium Hydroxide [Milk Of Magnesia] 30 ml PEG DAILY PRN 03/27/18 Meloxicam 15 mg PEG BEDTIME 03/27/18 Multiple Vitamins W/ Minerals [Multivitamin Adults] 1 tab PEG DAILY 03/27/18 Nystatin (Topical) [Nystatin] 100,000 unit EX BID 03/27/18 Nystatin (Topical) [Nystatin] 100,000 unit EX Q6H PRN 03/27/18 Potassium Chloride Elixir [Kaochlor Liquid] 7.5 ml PEG BID 03/27/18 Sennosides [Senokot] 8.6 mg PEG JOAQUIN-OTH-DAY 03/27/18 Buspirone HCl 10 mg PEG TID 12/08/18 Hydroxyzine Pamoate 50 mg PEG TID PRN 12/08/18 Ipratropium Brom 0.06% Nasal [Atrovent Nasal [place] 0.06%] 1 spray INTRATRACH Q6H 12/08/18 Melatonin 3 mg PEG BEDTIME 12/08/18 Review of Systems - Review of Systems Constitutional: States: weakness EENTM: States: no symptoms reported Respiratory: States: short of breath Cardiology: States: no symptoms reported Gastrointestinal/Abdominal: States: no symptoms reported Genitourinary: States: no symptoms reported Musculoskeletal: States: no symptoms reported Skin: States: no symptoms reported - the patient did recently have a cellulitis to herlateral abdomen that appears to have resolved. Neurological: States: other - the patient does seem a little confused initially. She is able to answer yes and no to most questions appropriately. Endocrine: States: no symptoms reported All other Systems: No Change from Baseline Past Medical History (General) - Patient Medical History Hx Seizures: Yes Hx Stroke: No Hx Dementia: Yes Hx Asthma: No Hx of COPD: Yes Hx Cardiac Disorders: No Hx Congestive Heart Failure: No Hx Pacemaker: No Hx Hypertension: Yes Hx Thyroid Disease: No Hx Diabetes: No Hx Gastroesophageal Reflux: Yes - g-tube in place Hx Renal Disease: No Hx Cancer: No Hx of HIV: No Hx Hepatitis C: No Hx MRSA: No - Vaccination History Hx Influenza Vaccination: Yes Hx Pneumococcal Vaccination: Yes - Social History Hx Tobacco Use: Yes Hx Chewing Tobacco Use: No Hx Alcohol Use: No Hx Substance Use: No Hx Substance Use Treatment: No Hx Depression: No Hx Physical Abuse: No Hx Emotional Abuse: No Hx Suspected Abuse: No - Female History Patient : No Family Medical History - Family History Mother Family History: Unknown Living Status: Unknown Physical Exam - Physical Exam General Appearance: Other - he patient is initially drowsy but is more alert as the Ativan wears off. She does appear to be working to breathe. Eye Exam: bilateral normal Ears, Nose, Throat: hearing grossly normal, normal pharynx Neck: full range of motion - trach collar is in place Respiratory: rales - at bases, other - her breathing pattern does seem to be somewhat irregular. Cardiovascular/Chest: normal peripheral pulses, tachycardia - sinus tachycardia, other - the patient has no significant lower extremity edema but she does have some upper extremity edema with the right being greater than the left. Peripheral Pulses: radial,right: 2+, radial,left: 2+, dorsalis pedis,right: 2+, dorsalis pedis,left: 2+ Gastrointestinal/Abdominal: non tender - obese. G-tube in place., soft Rectal Exam: deferred, other - the patient does have stage II lesions developing on bilateral buttock areas. 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 Skin Exam: other - the patient does have some chronic bruising to her extremities. She also has +2 edema to bilateral upper extremities. She also has developing decubitus sores on her posterior. Comments: Vital Signs - 24 hr 12/08/18 12/08/18 12/08/18 16:10 16:35 16:41 Temperature 100.6 F H Pulse Rate 117 H Pulse Rate [ 122 H 112 H left radial] Respiratory 20 15 15 Rate Respiratory Rate [Volume Control Data] Blood Pressure 194/128 179/107 [left radial] O2 Sat by Pulse 100 92 L 92 L Oximetry 12/08/18 12/08/18 12/08/18 16:45 17:01 17:30 Temperature 99.9 F H Pulse Rate 117 H Pulse Rate [ 85 left radial] Respiratory 15 15 Rate Respiratory 15 Rate [Volume Control Data] Blood Pressure 142/105 [left radial] O2 Sat by Pulse 95 97 Oximetry 12/08/18 18:00 Temperature 99.4 F Pulse Rate Pulse Rate [ 95 H left radial] Respiratory Rate Respiratory Rate [Volume Control Data] Blood Pressure 138/77 [left radial] O2 Sat by Pulse 99 Oximetry Progress - Progress Progress: 12/08/18 20:49 he patient's a 73-year-old female presenting to the emergency room secondary to respiratory distress. The patient is requiring higher FiO2 concentration to maintain oxygen saturations. CT scan of the chest shows a 3 x 1.5 cm apical mass along with what is most likely developing bilateral lower lobe pneumonia. Additionally the patient appears to be having a mild non-ST elevation NM judging by the rise in troponin. She is not having any chest pain. She is being treated currently with aspirin and heparin. For right now Plavix is not going to be used. She does have a mild elevation of her d-dimer however her creatinine is also elevated. Given the upper extremity and edema and her limited functionality, ultrasounds the extremities may be warranted. We have been unable to obtain lower peak pressures with adjustment of her ventilator. She is retaining some CO2 however this does appear to be her baseline when compared to previous ABGs. Transferred for higher level of care for above reasons. Cefepime and azithromycin have been started. Sputum and blood cultures have been performed. She has received 1 dose of stress dose steroids. She has also received several breathing treatments as well as CPT. blood pressures have significantly improved since admission. She is resting much more comfortably now than when she first arrived. She is reporting less shortness of breath.he patient will need wound care for decubitus developing ulcers. 12/08/18 20:53 12/08/18 20:53 - Results/Orders Results/Orders: CT scan of the chest shows a 3 x 1 cm apical mass. She has bilateral lower lobe infiltrates that could be consistent with pneumonia. CT scan of abdomen and pelvis shows no obvious acute pathology. See report for details. EKG shows sinus tachycardia. 114 bpm. Right axis deviation. No definitive ST segment or T-wave changes indicative of ischemia. The baseline is somewhat wandering secondary to respiratory difficulty with the patient. Laboratory Tests 12/08/18 12/08/18 12/08/18 16:31 16:31 16:31 WBC 19.8 H RBC 4.82 Hgb 11.7 L Hct 37.8 MCV 78.5 L MCH 24.2 L MCHC 30.8 L RDW 16.6 H Plt Count 378 MPV 7.2 L Absolute Neuts (auto) 17.10 H Absolute Lymphs (auto) 1.60 Absolute Monos (auto) 0.70 Absolute Eos (auto) 0.30 Absolute Basos (auto) 0.30 H Neutrophils % 86.2 H Lymphocytes % 7.9 L Monocytes % 3.3 Eosinophils % 1.3 Basophils % 1.3 Normal RBC Morphology 1+hypochromia PT 10.4 INR 1.04 PTT (SP) 26.7 D-Dimer, Quantitative 0.90 H* pCO2 pO2 HCO3 ABG pH ABG O2 Saturation ABG Base Excess ABG Deoxyhemoglobin Oxyhemoglobin % Carboxyhemoglobin % Methemoglobin % Sat Calc Total Hemoglobin Sodium 137 Potassium 4.7 Chloride 98 L Carbon Dioxide 27 Anion Gap 16.7 BUN 17 Creatinine 1.48 H BUN/Creatinine Ratio 11.5 Random Glucose 255 H Serum Osmolality 284.1 Lactic Acid Calcium 9.2 Magnesium 2.2 Total Bilirubin 0.4 AST 46 H ALT 34 Alkaline Phosphatase 63 Creatine Kinase 37 CK-MB (CK-2) 2.2 CK-MB (CK-2) % Not Reportable Troponin I 0.09 H* B-Natriuretic Peptide 151.0 H Serum Total Protein 7.5 Albumin 3.9 Globulin 3.6 H Albumin/Globulin Ratio 1.1 Urine Color Urine Appearance Urine pH Ur Specific [place] Urine Protein Urine Glucose (UA) Urine Ketones Urine Blood Urine Nitrite Urine Bilirubin Urine Urobilinogen Ur Leukocyte Esterase Urine RBC Urine WBC Ur Epithelial Cells Amorphous Sediment Urine Bacteria Urine Mucus 12/08/18 12/08/18 12/08/18 16:31 18:01 18:02 WBC RBC Hgb Hct MCV MCH MCHC RDW Plt Count MPV Absolute Neuts (auto) Absolute Lymphs (auto) Absolute Monos (auto) Absolute Eos (auto) Absolute Basos (auto) Neutrophils % Lymphocytes % Monocytes % Eosinophils % Basophils % Normal RBC Morphology PT INR PTT (SP) D-Dimer, Quantitative pCO2 57 H pO2 101 HCO3 29.3 ABG pH 7.330 L ABG O2 Saturation 98.4 ABG Base Excess 2.9 ABG Deoxyhemoglobin 1.6 Oxyhemoglobin % 98.6 H Carboxyhemoglobin % -0.1 L Methemoglobin % Sat 1.6 H Calc Total Hemoglobin 11.0 L Sodium Potassium Chloride Carbon Dioxide Anion Gap BUN Creatinine BUN/Creatinine Ratio Random Glucose Serum Osmolality Lactic Acid 1.2 Calcium Magnesium Total Bilirubin AST ALT Alkaline Phosphatase Creatine Kinase CK-MB (CK-2) CK-MB (CK-2) % Troponin I B-Natriuretic Peptide Serum Total Protein Albumin Globulin Albumin/Globulin Ratio Urine Color Yellow Urine Appearance Sl cloudy Urine pH 5.5 Ur Specific [place] >= 1.030 Urine Protein 100 H Urine Glucose (UA) Negative Urine Ketones Negative Urine Blood Trace-lysed H Urine Nitrite Negative Urine Bilirubin Negative Urine Urobilinogen 0.2 Ur Leukocyte Esterase Negative Urine RBC 1-3 Urine WBC 3-5 H Ur Epithelial Cells 3-5 Amorphous Sediment 2+ Urine Bacteria 1+ Urine Mucus Large 12/08/18 19:35 WBC RBC Hgb Hct MCV MCH MCHC RDW Plt Count MPV Absolute Neuts (auto) Absolute Lymphs (auto) Absolute Monos (auto) Absolute Eos (auto) Absolute Basos (auto) Neutrophils % Lymphocytes % Monocytes % Eosinophils % Basophils % Normal RBC Morphology PT INR PTT (SP) D-Dimer, Quantitative pCO2 pO2 HCO3 ABG pH ABG O2 Saturation ABG Base Excess ABG Deoxyhemoglobin Oxyhemoglobin % Carboxyhemoglobin % Methemoglobin % Sat Calc Total Hemoglobin Sodium Potassium Chloride Carbon Dioxide Anion Gap BUN Creatinine BUN/Creatinine Ratio Random Glucose Serum Osmolality Lactic Acid Calcium Magnesium Total Bilirubin AST ALT Alkaline Phosphatase Creatine Kinase 58 CK-MB (CK-2) 5.7 H* D CK-MB (CK-2) % 9.83 H Troponin I 0.61 H* B-Natriuretic Peptide Serum Total Protein Albumin Globulin Albumin/Globulin Ratio Urine Color Urine Appearance Urine pH Ur Specific [place] Urine Protein Urine Glucose (UA) Urine Ketones Urine Blood Urine Nitrite Urine Bilirubin Urine Urobilinogen Ur Leukocyte Esterase Urine RBC Urine WBC Ur Epithelial Cells Amorphous Sediment Urine Bacteria Urine Mucus Departure - Departure Clinical Impression: Ventilator associated pneumonia, Lung mass, Non-ST elevation (NSTEMI) myocardial infarction Decubitus skin ulcer Qualifiers: Pressure injury stage: stage 2 Disposition: Transfer to Hospital Condition: Serious Departure Forms: ED Discharge - Pt. Copy, Patient Portal Self Enrollment Referrals: LEONARDO LAGUNAS [Primary Care Provider] - 1-2 Weeks Home Medications: Ambulatory Orders Acetaminophen [Acetaminophen ER] 650 mg PEG Q6H PRN 12/19/15 Benzonatate 100 mg PEG TID PRN 12/19/15 Bisacodyl [Dulcolax] 10 mg IN DAILY PRN 12/19/15 Bupropion HCl [Bupropion HCl Sr] 150 mg PEG DAILY 12/19/15 Diphenhydramine HCl 25 mg PEG Q6H PRN 12/19/15 Famotidine 20 mg PEG BID 12/19/15 Furosemide 40 mg PEG DAILY 12/19/15 Insulin Aspart [Novolog] 0 unit SC DAILY 12/19/15 Melatonin 5 mg PEG BEDTIME 12/19/15 Metoprolol Tartrate 25 mg PEG BID 12/19/15 Polyvinyl Alcohol [Artificial Tears] 1.4 % OP Q6H PRN 12/19/15 Pravastatin Sodium [Pravachol] 20 mg PEG BEDTIME 12/19/15 Sertraline HCl [Zoloft] 150 mg PEG DAILY 12/19/15 Sucralfate 1 gm PEG ACHS 12/19/15 Theophylline 37.5 ml PEG BID 12/19/15 Tramadol HCl 50 mg PEG Q8H PRN 12/19/15 predniSONE [Prednisone] 10 mg PEG DAILY 12/19/15 Budesonide Nebs [Pulmicort Respules] 0.5 mg NEB BID 03/27/18 Chlorhexidine Gluconate (Mouth [Chlorhexidine Gluconate] 15 ml MT BID 03/27/18 Docusate Sodium 100 mg PEG DAILY 03/27/18 Lidocaine HCl (Cardiac) [Lidocaine HCl] 20 mg IV Q6H PRN 03/27/18 Loratadine [Claritin] 10 mg PEG DAILY 03/27/18 Magnesium Hydroxide [Milk Of Magnesia] 30 ml PEG DAILY PRN 03/27/18 Meloxicam 15 mg PEG BEDTIME 03/27/18 Multiple Vitamins W/ Minerals [Multivitamin Adults] 1 tab PEG DAILY 03/27/18 Nystatin (Topical) [Nystatin] 100,000 unit EX BID 03/27/18 Nystatin (Topical) [Nystatin] 100,000 unit EX Q6H PRN 03/27/18 Potassium Chloride Elixir [Kaochlor Liquid] 7.5 ml PEG BID 03/27/18 Sennosides [Senokot] 8.6 mg PEG JOAQUIN-OTH-DAY 03/27/18 Buspirone HCl 10 mg PEG TID 12/08/18 Hydroxyzine Pamoate 50 mg PEG TID PRN 12/08/18 Ipratropium Brom 0.06% Nasal [Atrovent Nasal [place] 0.06%] 1 spray INTRATRACH Q6H 12/08/18 Melatonin 3 mg PEG BEDTIME 12/08/18 Transfer to Outside Facility - Transfer Information Accepting Provider:: dr alejo Accepting Facility: [facility] Reason for Transfer: required specialist not available
[2018-12-08 21:10] VITALS: BP 128/75; TEMP 98.6; O2SAT 100
== END 2018-12-08 21:30 | disposition short-term general hospital (02) ==
LOC: ER 16:05
DX: J95.851 Ventilator associated pneumonia (principal); I21.4 Non-ST elevation (NSTEMI) myocardial infarction; R91.8 Other nonspecific abnormal finding of lung field; L89.322 Pressure ulcer of left buttock, stage 2; L89.312 Pressure ulcer of right buttock, stage 2; R56.9 Unspecified convulsions; F03.90 Unspecified dementia, unspecified severity, without behavioral disturbance, psychotic disturbance, mood disturbance, and anxiety; J44.9 Chronic obstructive pulmonary disease, unspecified; I10 Essential (primary) hypertension; K21.9 Gastro-esophageal reflux disease without esophagitis; Z87.891 Personal history of nicotine dependence; Z93.1 Gastrostomy status; Z79.899 Other long term (current) drug therapy; Z79.4 Long term (current) use of insulin; Z88.5 Allergy status to narcotic agent; Z88.2 Allergy status to sulfonamides
CPT/HCPCS: 36415; 36600; 71045; 71250; 74176; 80053; 81001; 82550; 82553; 82803; 82805; 83605; 83735; 83880; 84484; 85025; 85379; 85610; 85730; 87040; 87070; 93005; 94002; 94640; 94667; A4216; J0456; J0692; J1644; J2930; J7030; J7050; J7614; J7644

== ENCOUNTER 2019-04-26 16:14 | Emergency (ER) | payer BC, MEDICARE ==
[2019-04-26] MEDS ORDERED: FLUCONAZOLE 100 MG TAB PO ONE (16:29)
--- NOTE | 2019-04-26 16:31 | ED.PDOC ---
History of Present Illness - General Time Seen by Provider: 04/26/19 16:29 Source: patient Exam Limitations: no limitations - History of Present Illness Initial Comments: The patient is a 73-year-old female presenting to the emergency room from the retirement secondary to concern for a rash and bleeding around her G- tube site. The patient does appear to have some intertrigo and fungal rash around the G-tube site as well as underneath the right breast. This has caused some excoriation and mild bleeding. Additionally the patient has a small lip of polypoid intestinal tissue that is grown up through the ostomy site and is slightly exposed. This is more friable tissue and with movement of the G-tube does cause a small amount of bleeding. It is not uncontrolled. No evidence of overt infection. Timing/Duration: unsure Severity: mild Improving Factors: nothing Worsening Factors: nothing Associated Symptoms: denies symptoms Allergies/Adverse Reactions: Allergies Codeine Allergy (Verified 01/06/16 05:22) Sulfa Antibiotics Allergy (Verified 01/06/16 05:22) Home Medications: Ambulatory Orders Acetaminophen [Acetaminophen ER] 650 mg PEG Q6H PRN 12/19/15 Benzonatate 100 mg PEG TID PRN 12/19/15 Bisacodyl [Dulcolax] 10 mg MI DAILY PRN 12/19/15 Bupropion HCl [Bupropion HCl Sr] 150 mg PEG DAILY 12/19/15 Diphenhydramine HCl 25 mg PEG Q6H PRN 12/19/15 Famotidine 20 mg PEG BID 12/19/15 Furosemide 40 mg PEG DAILY 12/19/15 Insulin Aspart [Novolog] 0 unit SC DAILY 12/19/15 Melatonin 5 mg PEG BEDTIME 12/19/15 Metoprolol Tartrate 25 mg PEG BID 12/19/15 Polyvinyl Alcohol [Artificial Tears] 1.4 % OP Q6H PRN 12/19/15 Pravastatin Sodium [Pravachol] 20 mg PEG BEDTIME 12/19/15 Sertraline HCl [Zoloft] 150 mg PEG DAILY 12/19/15 Sucralfate 1 gm PEG ACHS 12/19/15 Theophylline 37.5 ml PEG BID 12/19/15 Tramadol HCl 50 mg PEG Q8H PRN 12/19/15 predniSONE [Prednisone] 10 mg PEG DAILY 12/19/15 Budesonide Nebs [Pulmicort Respules] 0.5 mg NEB BID 03/27/18 Chlorhexidine Gluconate (Mouth [Chlorhexidine Gluconate] 15 ml MT BID 03/27/18 Docusate Sodium 100 mg PEG DAILY 03/27/18 Lidocaine HCl (Cardiac) [Lidocaine HCl] 20 mg IV Q6H PRN 03/27/18 Loratadine [Claritin] 10 mg PEG DAILY 03/27/18 Magnesium Hydroxide [Milk Of Magnesia] 30 ml PEG DAILY PRN 03/27/18 Meloxicam 15 mg PEG BEDTIME 03/27/18 Multiple Vitamins W/ Minerals [Multivitamin Adults] 1 tab PEG DAILY 03/27/18 Nystatin (Topical) [Nystatin] 100,000 unit EX BID 03/27/18 Nystatin (Topical) [Nystatin] 100,000 unit EX Q6H PRN 03/27/18 Potassium Chloride Elixir [Kaochlor Liquid] 7.5 ml PEG BID 03/27/18 Sennosides [Senokot] 8.6 mg PEG JOAQUIN-OTH-DAY 03/27/18 Buspirone HCl 10 mg PEG TID 12/08/18 Hydroxyzine Pamoate 50 mg PEG TID PRN 12/08/18 Ipratropium Brom 0.06% Nasal [Atrovent Nasal [place] 0.06%] 1 spray INTRATRACH Q6H 12/08/18 Melatonin 3 mg PEG BEDTIME 12/08/18 Fluconazole Suspension [Diflucan Suspension] 2.5 ml GT DAILY #7.5 ml 04/26/19 Review of Systems - Review of Systems Review of Systems: 04/26/19 16:31 for changes from baseline only. Constitutional: States: no symptoms reported EENTM: States: no symptoms reported Respiratory: States: no symptoms reported Cardiology: States: no symptoms reported Gastrointestinal/Abdominal: States: no symptoms reported Genitourinary: States: no symptoms reported Musculoskeletal: States: no symptoms reported Skin: States: see HPI Neurological: States: no symptoms reported Endocrine: States: no symptoms reported All other Systems: No Change from Baseline Past Medical History (General) - Patient Medical History Hx Seizures: Yes Hx Stroke: No Hx Dementia: Yes Hx Asthma: No Hx of COPD: Yes Hx Cardiac Disorders: No Hx Congestive Heart Failure: No Hx Pacemaker: No Hx Hypertension: Yes Hx Thyroid Disease: No Hx Diabetes: No Hx Gastroesophageal Reflux: Yes - g-tube in place Hx Renal Disease: No Hx Cancer: No Hx of HIV: No Hx Hepatitis C: No Hx MRSA: No - Vaccination History Hx Influenza Vaccination: Yes Hx Pneumococcal Vaccination: Yes - Social History Hx Tobacco Use: Yes Hx Chewing Tobacco Use: No Hx Alcohol Use: No Hx Substance Use: No Hx Substance Use Treatment: No Hx Depression: No Hx Physical Abuse: No Hx Emotional Abuse: No Hx Suspected Abuse: No - Female History Patient : No Family Medical History - Family History Mother Family History: Unknown Living Status: Unknown Physical Exam - Physical Exam General Appearance: Alert, Comfortable, No apparent distress Eye Exam: bilateral normal Ears, Nose, Throat: hearing grossly normal, normal pharynx Neck: non-tender - trach is in place, supple Respiratory: no respiratory distress, no accessory muscle use, other - good air movement on the vent Cardiovascular/Chest: normal peripheral pulses, no edema, other - regular rate Peripheral Pulses: radial,right: 2+, radial,left: 2+ Gastrointestinal/Abdominal: non tender, soft, other - ostomy is in place. 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 The patient is given a dose of Diflucan here. I'm writing her for 2 more doses to take over the next few days. A water skin barrier such as Vaseline or Aquaphor can be used to reduce moisture and prevent a recurrence of the fungal infection. The patient is having a very tiny amount of bleeding from the polypoid tissue developing from the gastrostomy site. Padding around the area will help reduce irritation. If it continues to be an issue then she can see her general surgeon to have this tissue excised. no uncontrolled bleeding. the patient's questions have been answered. ER warnings were given. She will be allowed to be returned to her long-term care facility. [email or web address] [id number] Departure - Departure Clinical Impression: Intertrigo, Gastrostomy infection, Gastrostomy complication Disposition: Discharge to Home or Self Care Condition: Fair Diet: regular diet - for the patient Activity: increase activity as tolerated Referrals: LEONARDO LAGUNAS [Primary Care Provider] - 1-5 Days Prescriptions: Fluconazole Suspension [Diflucan Suspension] 2.5 ml GT DAILY #7.5 ml Home Medications: Ambulatory Orders Acetaminophen [Acetaminophen ER] 650 mg PEG Q6H PRN 12/19/15 Benzonatate 100 mg PEG TID PRN 12/19/15 Bisacodyl [Dulcolax] 10 mg MI DAILY PRN 12/19/15 Bupropion HCl [Bupropion HCl Sr] 150 mg PEG DAILY 12/19/15 Diphenhydramine HCl 25 mg PEG Q6H PRN 12/19/15 Famotidine 20 mg PEG BID 12/19/15 Furosemide 40 mg PEG DAILY 12/19/15 Insulin Aspart [Novolog] 0 unit SC DAILY 12/19/15 Melatonin 5 mg PEG BEDTIME 12/19/15 Metoprolol Tartrate 25 mg PEG BID 12/19/15 Polyvinyl Alcohol [Artificial Tears] 1.4 % OP Q6H PRN 12/19/15 Pravastatin Sodium [Pravachol] 20 mg PEG BEDTIME 12/19/15 Sertraline HCl [Zoloft] 150 mg PEG DAILY 12/19/15 Sucralfate 1 gm PEG ACHS 12/19/15 Theophylline 37.5 ml PEG BID 12/19/15 Tramadol HCl 50 mg PEG Q8H PRN 12/19/15 predniSONE [Prednisone] 10 mg PEG DAILY 12/19/15 Budesonide Nebs [Pulmicort Respules] 0.5 mg NEB BID 03/27/18 Chlorhexidine Gluconate (Mouth [Chlorhexidine Gluconate] 15 ml MT BID 03/27/18 Docusate Sodium 100 mg PEG DAILY 03/27/18 Lidocaine HCl (Cardiac) [Lidocaine HCl] 20 mg IV Q6H PRN 03/27/18 Loratadine [Claritin] 10 mg PEG DAILY 03/27/18 Magnesium Hydroxide [Milk Of Magnesia] 30 ml PEG DAILY PRN 03/27/18 Meloxicam 15 mg PEG BEDTIME 03/27/18 Multiple Vitamins W/ Minerals [Multivitamin Adults] 1 tab PEG DAILY 03/27/18 Nystatin (Topical) [Nystatin] 100,000 unit EX BID 03/27/18 Nystatin (Topical) [Nystatin] 100,000 unit EX Q6H PRN 03/27/18 Potassium Chloride Elixir [Kaochlor Liquid] 7.5 ml PEG BID 03/27/18 Sennosides [Senokot] 8.6 mg PEG JOAQUIN-OTH-DAY 03/27/18 Buspirone HCl 10 mg PEG TID 12/08/18 Hydroxyzine Pamoate 50 mg PEG TID PRN 12/08/18 Ipratropium Brom 0.06% Nasal [Atrovent Nasal [place] 0.06%] 1 spray INTRATRACH Q6H 12/08/18 Melatonin 3 mg PEG BEDTIME 12/08/18 Fluconazole Suspension [Diflucan Suspension] 2.5 ml GT DAILY #7.5 ml 04/26/19 Additional Instructions: the patient is a 73-year-old female presenting to the emergency room secondary to what appears to be fungal intertrigo underneath her right breast as well as starting to surround the ostomy site on her abdomen. The patient is given a dose of Diflucan here. I'm writing her for 2 more doses to take over the next few days. A water skin barrier such as Vaseline or Aquaphor can be used to reduce moisture and prevent a recurrence of the fungal infection. The patient is having a very tiny amount of bleeding from the polypoid tissue developing from the gastrostomy site. Padding around the area will help reduce irritation. If it continues to be an issue then she can see her general surgeon to have this tissue excised. no uncontrolled bleeding. the patient's questions have been answered. ER warnings were given. She will be allowed to be returned to her long-term care facility.
[2019-04-27 19:45] VITALS: BP 191/91; TEMP 97.9; O2SAT 98
== END 2019-04-27 17:15 | disposition home or self-care (01) ==
LOC: ER 16:14
DX: L30.4 Erythema intertrigo (principal); K94.22 Gastrostomy infection; F03.90 Unspecified dementia, unspecified severity, without behavioral disturbance, psychotic disturbance, mood disturbance, and anxiety; R56.9 Unspecified convulsions; J44.9 Chronic obstructive pulmonary disease, unspecified; I10 Essential (primary) hypertension; K21.9 Gastro-esophageal reflux disease without esophagitis; Z87.891 Personal history of nicotine dependence; Z79.899 Other long term (current) drug therapy; Z79.4 Long term (current) use of insulin; Z88.5 Allergy status to narcotic agent; Z88.2 Allergy status to sulfonamides; Z99.11 Dependence on respirator [ventilator] status

== ENCOUNTER 2019-04-27 07:58 | Emergency (ER) | payer BC, MEDICARE ==
[2019-04-27] MEDS ORDERED: SODIUM CHLORIDE 0.9% (FLUSH) 10 ML SYG IV PRN (08:10)
--- NOTE | 2019-04-27 08:17 | ED.PDOC ---
History of Present Illness - General Chief Complaint: GI Problem Stated Complaint: Leaking around G-tube Time Seen by Provider: 04/27/19 07:58 Source: patient, snf records - History of Present Illness Initial Comments: 73 yo female vent-dependent, g-tube dependent who is bib EMS from [facility] for cc of leakage around her g-tube site. Pt was seen for similar issue yesterday here and also for some bleeding at the g-tube site. She was noted to have some friable polypoid tissue and fungal rash at the site of her g-tube and Rx'd Diflucan, first dose yesterday in ED. Pt has reportedly had her g-tube surgically placed >2 years ago without much issue until this week. Pt reports she has been having some drainage around the ostomy site since 5 days ago. The g-tube was replaced 4 days ago without improvement per patient. She reports only complaint of on-and-off 5/10 crampy abdominal pain near the g-tube site since 5 days ago, no significant change since onset, nothing tried for relief. Also complains of the rash at the site. Denies any barrier protectant creams being used for this. Denies any other complaints - specifically no fevers, chills, chest pain, dyspnea, n/v/d, constipation, urinary sx's. Last BM was this morning and normal. Reports +flatus. MD report stated main concern of leakage of gastric contents around the ostomy site and abdominal distension. Allergies/Adverse Reactions: Allergies Codeine Allergy (Verified 01/06/16 05:22) Sulfa Antibiotics Allergy (Verified 01/06/16 05:22) Home Medications: Ambulatory Orders Acetaminophen [Acetaminophen ER] 650 mg PEG Q6H PRN 12/19/15 Bisacodyl [Dulcolax] 10 mg ME DAILY PRN 12/19/15 Bupropion HCl [Bupropion HCl Sr] 150 mg PEG DAILY 12/19/15 Insulin Aspart [Novolog] 0 unit SC DAILY 12/19/15 Polyvinyl Alcohol [Artificial Tears] 1.4 % OP Q6H PRN 12/19/15 Pravastatin Sodium [Pravachol] 20 mg PEG BEDTIME 12/19/15 RX: Benzonatate 100 mg PEG TID PRN 12/19/15 RX: Diphenhydramine HCl 25 mg PEG Q6H PRN 12/19/15 RX: Famotidine 20 mg PEG BID 12/19/15 RX: Furosemide 40 mg PEG DAILY 12/19/15 RX: Melatonin 5 mg PEG BEDTIME 12/19/15 RX: Metoprolol Tartrate 25 mg PEG BID 12/19/15 RX: Sucralfate 1 gm PEG ACHS 12/19/15 RX: Theophylline 37.5 ml PEG BID 12/19/15 RX: Tramadol HCl 50 mg PEG Q8H PRN 12/19/15 Sertraline HCl [Zoloft] 150 mg PEG DAILY 12/19/15 predniSONE [Prednisone] 10 mg PEG DAILY 12/19/15 Budesonide Nebs [Pulmicort Respules] 0.5 mg NEB BID 03/27/18 Chlorhexidine Gluconate (Mouth [Chlorhexidine Gluconate] 15 ml MT BID 03/27/18 Lidocaine HCl (Cardiac) [Lidocaine HCl] 20 mg IV Q6H PRN 03/27/18 Loratadine [Claritin] 10 mg PEG DAILY 03/27/18 Magnesium Hydroxide [Milk Of Magnesia] 30 ml PEG DAILY PRN 03/27/18 Multiple Vitamins W/ Minerals [Multivitamin Adults] 1 tab PEG DAILY 03/27/18 Nystatin (Topical) [Nystatin] 100,000 unit EX BID 03/27/18 Nystatin (Topical) [Nystatin] 100,000 unit EX Q6H PRN 03/27/18 Potassium Chloride Elixir [Kaochlor Liquid] 7.5 ml PEG BID 03/27/18 RX: Docusate Sodium 100 mg PEG DAILY 03/27/18 RX: Meloxicam 15 mg PEG BEDTIME 03/27/18 Sennosides [Senokot] 8.6 mg PEG JOAQUIN-OTH-DAY 03/27/18 Ipratropium Brom 0.06% Nasal [Atrovent Nasal [place] 0.06%] 1 spray INTRATRACH Q6H 12/08/18 RX: Buspirone HCl 10 mg PEG TID 12/08/18 RX: Hydroxyzine Pamoate 50 mg PEG TID PRN 12/08/18 RX: Melatonin 3 mg PEG BEDTIME 12/08/18 Fluconazole Suspension [Diflucan Suspension] 2.5 ml GT DAILY #7.5 ml 04/26/19 Amoxicillin & Pot Clavulanate [Augmentin Tab] 875 mg PO BID 7 Days #14 tab 04/27/19 Review of Systems - Review of Systems Review of Systems: 04/27/19 08:17 as per HPI All other Systems: Reviewed and Negative Past Medical History (General) - Patient Medical History Hx Seizures: Yes Hx Stroke: No Hx Dementia: Yes Hx Asthma: No Hx of COPD: Yes Hx Cardiac Disorders: No Hx Congestive Heart Failure: No Hx Pacemaker: No Hx Hypertension: Yes Hx Thyroid Disease: No Hx Diabetes: No Hx Gastroesophageal Reflux: Yes - g-tube in place Hx Renal Disease: No Hx Cancer: No Hx of HIV: No Hx Hepatitis C: No Hx MRSA: No - Vaccination History Hx Influenza Vaccination: Yes Hx Pneumococcal Vaccination: Yes - Social History Hx Tobacco Use: Yes Hx Chewing Tobacco Use: No Hx Alcohol Use: No Hx Substance Use: No Hx Substance Use Treatment: No Hx Depression: No Hx Physical Abuse: No Hx Emotional Abuse: No Hx Suspected Abuse: No - Female History Patient : No Family Medical History - Family History Mother Family History: Unknown Living Status: Unknown Physical Exam - Physical Exam General Appearance: Alert, Comfortable Eye Exam: bilateral normal Ears, Nose, Throat: hearing grossly normal, normal ENT inspection Neck: non-tender, full range of motion, supple, normal inspection Respiratory: lungs clear, normal breath sounds, no respiratory distress Cardiovascular/Chest: normal peripheral pulses, regular rate, rhythm, no edema, no murmur Gastrointestinal/Abdominal: normal bowel sounds, non tender, soft, other - g- tube in place, no displacement with gently tugging, scant yellow discharge noted around ostomy site, erythematous papular rash around ostomy site appears fungal in nature, several small <1 cm polypoid friable tissue noted at ostomy site, moderately ttp, no active bleeding Back Exam: normal inspection, no CVA tenderness Extremity: normal range of motion, non-tender, no pedal edema, normal capillary refill 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 However, pt reports feeds have been going well and she feels tube not dislodged. Reports some crampy abdominal pains but denies any other acute sx's. -consider g-tube dislodgment vs other causes -will obtain labs, CXR, KUB with gastrografin, attempt flushing of sterile water at bedside 04/27/19 10:18 -CXR shows no acute processes per my read -KUB with gastrografin shows contrast in the stomach without leakage - g-tube appears in correct position, no acute processes noted -CT A/P obtained given pt's body habitus and limited evaluation with KUB for possible signs of obstruction... Reveals some induration around the g-tube without evidence of focal abscess. Otherwise no leakage of contrast noted, moderate stool in colon c/w mild-mod constipation. No other acute processes noted. -Pt has remained stable, labs largely unremarkable. Discussed dx of parastomal cellulitis and intertrigo. Continue already Rx'd Diflucan - will add Clotrimazole cream BID until healed and recommend frequent barrier protectant to area as well. For cellulitis, will Rx Augmentin 875 BID x7 days. F/u closely with PCP. -dc back to [facility] in good condition Ron Rao MD Billing #[id number] - Results/Orders Results/Orders: Laboratory Results - last 24 hr 04/27/19 04/27/19 04/27/19 08:25 08:25 08:25 WBC 10.8 RBC 4.50 Hgb 10.2 L Hct 32.3 L MCV 71.6 L MCH 22.7 L MCHC 31.6 L RDW 18.5 H Plt Count 310 MPV 6.5 L Absolute Neuts (auto) 7.30 H Absolute Lymphs (auto) 1.80 Absolute Monos (auto) 0.90 H Absolute Eos (auto) 0.50 H Absolute Basos (auto) 0.20 H Neutrophils % 68.0 Lymphocytes % 16.9 L Monocytes % 8.0 Eosinophils % 5.0 Basophils % 2.1 H Sodium 142 Potassium 3.6 Chloride 103 Carbon Dioxide 29 Anion Gap 13.6 BUN 15 Creatinine 1.31 H BUN/Creatinine Ratio 11.5 Random Glucose 99 Serum Osmolality 284.0 Calcium 9.3 Total Bilirubin 0.3 Direct Bilirubin < 0.1 Indirect Bilirubin 0.2 AST 19 ALT 14 Alkaline Phosphatase 57 Serum Total Protein 6.5 Albumin 3.5 Lipase 33 Departure - Departure Clinical Impression: Cellulitis, abdominal wall, Intertrigo Time of Disposition: 10:23 Disposition: Discharge to SNF Condition: Good Departure Forms: ED Discharge - Pt. Copy, Patient Portal Self Enrollment Instructions: Cellulitis (Skin Infection), Adult (DC) Diet: resume usual diet Referrals: LEONARDO LAGUNAS [Primary Care Provider] - 1-2 Weeks Prescriptions: Amoxicillin & Pot Clavulanate [Augmentin Tab] 875 mg PO BID 7 Days #14 tab Home Medications: Ambulatory Orders Acetaminophen [Acetaminophen ER] 650 mg PEG Q6H PRN 12/19/15 Bisacodyl [Dulcolax] 10 mg ME DAILY PRN 12/19/15 Bupropion HCl [Bupropion HCl Sr] 150 mg PEG DAILY 12/19/15 Insulin Aspart [Novolog] 0 unit SC DAILY 12/19/15 Polyvinyl Alcohol [Artificial Tears] 1.4 % OP Q6H PRN 12/19/15 Pravastatin Sodium [Pravachol] 20 mg PEG BEDTIME 12/19/15 RX: Benzonatate 100 mg PEG TID PRN 12/19/15 RX: Diphenhydramine HCl 25 mg PEG Q6H PRN 12/19/15 RX: Famotidine 20 mg PEG BID 12/19/15 RX: Furosemide 40 mg PEG DAILY 12/19/15 RX: Melatonin 5 mg PEG BEDTIME 12/19/15 RX: Metoprolol Tartrate 25 mg PEG BID 12/19/15 RX: Sucralfate 1 gm PEG ACHS 12/19/15 RX: Theophylline 37.5 ml PEG BID 12/19/15 RX: Tramadol HCl 50 mg PEG Q8H PRN 12/19/15 Sertraline HCl [Zoloft] 150 mg PEG DAILY 12/19/15 predniSONE [Prednisone] 10 mg PEG DAILY 12/19/15 Budesonide Nebs [Pulmicort Respules] 0.5 mg NEB BID 03/27/18 Chlorhexidine Gluconate (Mouth [Chlorhexidine Gluconate] 15 ml MT BID 03/27/18 Lidocaine HCl (Cardiac) [Lidocaine HCl] 20 mg IV Q6H PRN 03/27/18 Loratadine [Claritin] 10 mg PEG DAILY 03/27/18 Magnesium Hydroxide [Milk Of Magnesia] 30 ml PEG DAILY PRN 03/27/18 Multiple Vitamins W/ Minerals [Multivitamin Adults] 1 tab PEG DAILY 03/27/18 Nystatin (Topical) [Nystatin] 100,000 unit EX BID 03/27/18 Nystatin (Topical) [Nystatin] 100,000 unit EX Q6H PRN 03/27/18 Potassium Chloride Elixir [Kaochlor Liquid] 7.5 ml PEG BID 03/27/18 RX: Docusate Sodium 100 mg PEG DAILY 03/27/18 RX: Meloxicam 15 mg PEG BEDTIME 03/27/18 Sennosides [Senokot] 8.6 mg PEG JOAQUIN-OTH-DAY 03/27/18 Ipratropium Brom 0.06% Nasal [Atrovent Nasal [place] 0.06%] 1 spray INTRATRACH Q6H 12/08/18 RX: Buspirone HCl 10 mg PEG TID 12/08/18 RX: Hydroxyzine Pamoate 50 mg PEG TID PRN 12/08/18 RX: Melatonin 3 mg PEG BEDTIME 12/08/18 Fluconazole Suspension [Diflucan Suspension] 2.5 ml GT DAILY #7.5 ml 04/26/19 Amoxicillin & Pot Clavulanate [Augmentin Tab] 875 mg PO BID 7 Days #14 tab 04/27/19 Additional Instructions: Advise clotrimazole 1% topical cream (OTC) twice daily to rash surrounding stomal site until healed. Continue Diflucan as previously prescribed. Take the Augmentin as prescribed for parastomal cellulitis. For constipation, may take Miralax BID PRN until having regular soft bowel movements. Follow up closely with PCP.
--- NOTE | 2019-04-27 09:35 | RAD ---
EXAM: XR Abdomen, 1 View CLINICAL HISTORY: g-tube site leakage TECHNIQUE: Frontal supine view of the abdomen/pelvis. COMPARISON: No relevant prior studies available. FINDINGS: Limitations: None. Gastrointestinal tract: Two images show contrast in the stomach and proximal small bowel loops. No gross extravasation is identified. Intraperitoneal contrast leak cannot be excluded on the basis of these images. No dilation. Bones/joints: Unremarkable. IMPRESSION: Two images show contrast in the stomach and proximal small bowel loops. No gross extravasation is identified. Intraperitoneal contrast leak cannot be excluded on the basis of these images. See subsequently performed CT abdomen report. Electronically signed by: Mamie Gordillo MD 04/27/2019 9:34 AM [employer]
--- NOTE | 2019-04-27 09:38 | RAD ---
EXAM: XR Chest, 1 View CLINICAL HISTORY: g-tube site leakage TECHNIQUE: Frontal view of the chest. COMPARISON: No relevant prior studies available. FINDINGS: Limitations: None. Lungs: The lungs are hyperinflated. Pleural space: Unremarkable. No pneumothorax. Heart: Stable cardiac shadow. Mediastinum: Unremarkable. Bones/joints: Unremarkable. Tubes, lines and devices: Tracheostomy tube terminates about 10.5 cm above the jhonny. Upper abdomen: No free air noted under the diaphragm. IMPRESSION: Chronic changes as above. No acute disease. Electronically signed by: Mamie Gordillo MD 04/27/2019 9:36 AM [facility]
--- NOTE | 2019-04-27 10:10 | CT ---
EXAM: CT Abdomen and Pelvis Without Intravenous Contrast CLINICAL HISTORY: abd pain, g-tube leakage TECHNIQUE: Axial computed tomography images of the abdomen and pelvis without intravenous contrast. Sagittal and coronal reformatted images were created and reviewed. This CT exam was performed using one or more of the following dose reduction techniques: automated exposure control, adjustment of the mA and/or kV according to patient size, and/or use of iterative reconstruction technique. COMPARISON: No relevant prior studies available. FINDINGS: Limitations: None. Lung bases: There is linear scarring or atelectasis left base. Mild chronic airway thickening noted. Heart: There is mild pericardial thickening. ABDOMEN: Liver: Unremarkable. Gallbladder and bile ducts: Cholecystectomy. No ductal dilation. Pancreas: Unremarkable. No ductal dilation. Spleen: Unremarkable. No splenomegaly. Adrenals: Unremarkable. No mass. Kidneys and ureters: There is an isodense exophytic 8 mm nodule posterior midpole cortex right kidney. Left kidney appears normal. No obstructing stones. No hydronephrosis. Stomach and bowel: Moderate amounts of colonic stool present. There is scattered colonic diverticulosis. No inflammatory process noted. No obstruction. No evidence of contrast leakage from the stomach or opacified intestinal loops. No mucosal thickening. PELVIS: Appendix: No findings to suggest acute appendicitis. Bladder: Unremarkable. No stones. Reproductive: Hysterectomy. ABDOMEN and PELVIS: Intraperitoneal space: Unremarkable. No free air. No significant fluid collection. Bones/joints: No acute fracture. No dislocation. Soft tissues: Gastrostomy balloon inflated in the gastric body. There is induration and a small amount of air along the tract. There is no measurable subcutaneous fluid collection. Vasculature: Unremarkable. No abdominal aortic aneurysm. Lymph nodes: Unremarkable. No enlarged lymph nodes. IMPRESSION: 1. There is induration and a small amount of gas along the gastrostomy tube tract without drainable collection. No evidence of extravasation from the stomach. 2. Subcentimeter exophytic isodense nodule right kidney probably a cyst but confirmation with sonography needed unless already known. Electronically signed by: Mamie Gordillo MD 04/27/2019 10:08 AM [facility]
[2019-04-27] MEDS ORDERED: AMOXICILLIN & POT CLAVULANATE 875 MG TAB PO ONE (10:17)
[2019-04-27 11:07] VITALS: BP 164/77; TEMP 99; O2SAT 98
== END 2019-04-27 11:10 ==
LOC: ER 07:58
DX: L30.4 Erythema intertrigo (principal); L03.311 Cellulitis of abdominal wall; R10.9 Unspecified abdominal pain; R56.9 Unspecified convulsions; F03.90 Unspecified dementia, unspecified severity, without behavioral disturbance, psychotic disturbance, mood disturbance, and anxiety; J44.9 Chronic obstructive pulmonary disease, unspecified; I10 Essential (primary) hypertension; Z87.891 Personal history of nicotine dependence; Z93.1 Gastrostomy status; Z79.899 Other long term (current) drug therapy; Z79.4 Long term (current) use of insulin; Z88.5 Allergy status to narcotic agent; Z88.2 Allergy status to sulfonamides

== ENCOUNTER 2019-05-13 22:39 | Emergency (ER) | payer BC, MEDICARE ==
--- NOTE | 2019-05-13 23:27 | RAD ---
CLINICAL HISTORY: mild sob on vent COMPARISON: 04/27/2019. 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 There is probable upper lung emphysema. Medial right apical mass measures 4.1 cm. There may be a minimal left pleural effusion. There is no pneumothorax. There are no acute osseous findings. Tracheostomy is unchanged. IMPRESSION: Emphysema with right apical malignancy. 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
[2019-05-14] MEDS ORDERED: predniSONE 20 MG TAB PO ONE
[2019-05-14] MEDS ORDERED: traMADol HCL 50 MG TAB PO ONE
--- NOTE | 2019-05-14 00:03 | ED.PDOC ---
History of Present Illness - General Chief Complaint: Respiratory Problem Stated Complaint: SOB Time Seen by Provider: 05/13/19 22:52 Source: patient, EMS notes reviewed Exam Limitations: clinical condition - History of Present Illness Initial Comments: the patient is a 73-year-old female presenting to emergency room by EMS secondary to a sensation of mild increased shortness of breath over the last day or 2. She has had a increased clearing cough. She has had a mild runny nose. No real sore throat. Questionable low-grade fevers. There are numerous viruses going around causing upper respiratory tract infections. She is ventilator dependent patient secondary to her COPD. She actually sounds much better than she has in the numerous recent visits that I have seen with her. The patient is alert pleasant and cooperative. She does not appear to be in any distress. She is ventilating normally on her normal settings. She moves all extremities fairly well.she reportedly just had a breathing treatment before coming up here and she actually sounds pretty good. Timing/Duration: 24 hours Severity: mild Improving Factors: nothing Worsening Factors: nothing Associated Symptoms: cough, malaise Allergies/Adverse Reactions: Allergies Codeine Allergy (Verified 01/06/16 05:22) Penicillins Allergy (Verified 05/13/19 23:22) Sulfa Antibiotics Allergy (Verified 01/06/16 05:22) Home Medications: Ambulatory Orders Acetaminophen [Acetaminophen ER] 650 mg PEG Q6H PRN 12/19/15 Benzonatate 100 mg PEG TID PRN 12/19/15 Bisacodyl [Dulcolax] 10 mg MO DAILY PRN 12/19/15 Bupropion HCl [Bupropion HCl Sr] 150 mg PEG DAILY 12/19/15 Diphenhydramine HCl 25 mg PEG Q6H PRN 12/19/15 Famotidine 20 mg PEG BID 12/19/15 Furosemide 40 mg PEG DAILY 12/19/15 Insulin Aspart [Novolog] 0 unit SC DAILY 12/19/15 Melatonin 5 mg PEG BEDTIME 12/19/15 Metoprolol Tartrate 25 mg PEG BID 12/19/15 Polyvinyl Alcohol [Artificial Tears] 1.4 % OP Q6H PRN 12/19/15 Pravastatin Sodium [Pravachol] 20 mg PEG BEDTIME 12/19/15 Sertraline HCl [Zoloft] 150 mg PEG DAILY 12/19/15 Sucralfate 1 gm PEG ACHS 12/19/15 Theophylline 37.5 ml PEG BID 12/19/15 Tramadol HCl 50 mg PEG Q8H PRN 12/19/15 predniSONE [Prednisone] 10 mg PEG DAILY 12/19/15 Budesonide Nebs [Pulmicort Respules] 0.5 mg NEB BID 03/27/18 Chlorhexidine Gluconate (Mouth [Chlorhexidine Gluconate] 15 ml MT BID 03/27/18 Docusate Sodium 100 mg PEG DAILY 03/27/18 Lidocaine HCl (Cardiac) [Lidocaine HCl] 20 mg IV Q6H PRN 03/27/18 Loratadine [Claritin] 10 mg PEG DAILY 03/27/18 Magnesium Hydroxide [Milk Of Magnesia] 30 ml PEG DAILY PRN 03/27/18 Meloxicam 15 mg PEG BEDTIME 03/27/18 Multiple Vitamins W/ Minerals [Multivitamin Adults] 1 tab PEG DAILY 03/27/18 Nystatin (Topical) [Nystatin] 100,000 unit EX BID 03/27/18 Nystatin (Topical) [Nystatin] 100,000 unit EX Q6H PRN 03/27/18 Potassium Chloride Elixir [Kaochlor Liquid] 7.5 ml PEG BID 03/27/18 Sennosides [Senokot] 8.6 mg PEG JOAQUIN-OTH-DAY 03/27/18 Buspirone HCl 10 mg PEG TID 12/08/18 Hydroxyzine Pamoate 50 mg PEG TID PRN 12/08/18 Ipratropium Brom 0.06% Nasal [Atrovent Nasal [place] 0.06%] 1 spray INTRATRACH Q6H 12/08/18 Melatonin 3 mg PEG BEDTIME 12/08/18 Fluconazole Suspension [Diflucan Suspension] 2.5 ml GT DAILY #7.5 ml 04/26/19 Amoxicillin & Pot Clavulanate [Augmentin Tab] 875 mg PO BID 7 Days #14 tab 04/27/19 predniSONE [Prednisone] 20 mg PO DAILY #3 tab 05/14/19 Review of Systems - Review of Systems Constitutional: States: malaise EENTM: States: nose congestion Respiratory: States: cough, short of breath - mild Cardiology: States: no symptoms reported Gastrointestinal/Abdominal: States: no symptoms reported Genitourinary: States: no symptoms reported Musculoskeletal: States: no symptoms reported Skin: States: no symptoms reported Neurological: States: no symptoms reported Endocrine: States: no symptoms reported All other Systems: No Change from Baseline Past Medical History (General) - Patient Medical History Hx Seizures: Yes Hx Stroke: No Hx Dementia: Yes Hx Asthma: No Hx of COPD: Yes Hx Cardiac Disorders: No Hx Congestive Heart Failure: No Hx Pacemaker: No Hx Hypertension: Yes Hx Thyroid Disease: Yes Hx Diabetes: Yes Hx Gastroesophageal Reflux: Yes Hx Renal Disease: No Hx Cancer: No Hx of HIV: No Hx Hepatitis C: No Hx MRSA: No - Vaccination History Hx Influenza Vaccination: Yes Hx Pneumococcal Vaccination: Yes - Social History Hx Tobacco Use: Yes Hx Chewing Tobacco Use: No Hx Alcohol Use: No Hx Substance Use: No Hx Substance Use Treatment: No Hx Depression: Yes Feels Threatened In Home Enviroment: No Feels Threatened In a Relationship: No Hx Physical Abuse: No Hx Emotional Abuse: No Hx Suspected Abuse: No - Activities of Daily Living Half-Way/Assisted Living (if applicable):: [facility] - Female History Patient is a Female of Child Bearing Age (10 -59 yrs old): No Patient : No Family Medical History - Family History Mother Family History: Unknown Living Status: Unknown Physical Exam - Physical Exam General Appearance: Alert, Comfortable, No apparent distress Eye Exam: bilateral normal Ears, Nose, Throat: hearing grossly normal, nasal congestion Neck: full range of motion, other - trach is in place Respiratory: lungs clear, normal breath sounds, no respiratory distress, no accessory muscle use Cardiovascular/Chest: normal peripheral pulses, other - regular rate Peripheral Pulses: radial,right: 2+, radial,left: 2+ Gastrointestinal/Abdominal: non tender, soft, other - bandages in place over her previous G-tube site. 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, alert, normal mood/affect, oriented x 3 Skin Exam: normal color Comments: Vital Signs - 24 hr 05/13/19 05/13/19 05/13/19 22:40 22:48 23:07 Temperature 99.3 F Pulse Rate [ 88 pulse ox] Respiratory 16 16 Rate Respiratory 16 Rate [Volume Control Data] Blood Pressure 145/65 [right amr] O2 Sat by Pulse 98 Oximetry 05/13/19 05/13/19 23:14 23:32 Temperature Pulse Rate [ 86 pulse ox] Respiratory 16 16 Rate Respiratory Rate [Volume Control Data] Blood Pressure 140/61 [right amr] O2 Sat by Pulse 98 Oximetry Progress - Progress Progress: 05/14/19 00:04 the patient is a 73-year-old female presenting to emergency room with what appears to be a viral upper respiratory tract infection. The patient has tested negative for flu. Chest x-ray fails to show any large infiltrate or any evidence of fluid overload. Clinical impression is a mild bronchitis at this point. The patient did receive one small dose of oral prednisone here and is going to be written for 3 more days of 20 mg daily of prednisone to help reduce her reactive airway component. She does need to continue having her breathing treatments. I see no clinical evidence of any bacterial infection at this point. No evidence of any respiratory distress. The patient will likely have another 3-5 days of symptoms. Blood sugars do need to be monitored in light of the steroid usage. She needs to follow back up with the facility doctor in a few days. she is to return to the emergency room for any significant worsening. [email or web address] [id number] - Results/Orders Results/Orders: chest x-ray shows emphysematous changes as well as the chronic right apical mass. No focal infiltrate. Rapid flu is negative. Departure - Departure Clinical Impression: Upper respiratory infection Qualifiers: URI type: unspecified viral URI Qualified Code(s): J06.9 - Acute upper respiratory infection, unspecified Disposition: Discharge to SNF Condition: Fair Departure Forms: ED Discharge - Pt. Copy, Patient Portal Self Enrollment Instructions: Acute Bronchitis, Viral Upper Respiratory Infection, Adult (DC) Diet: diabetic diet Activity: increase activity as tolerated Referrals: LEONARDO LAGUNAS [Primary Care Provider] - 1-2 Days Prescriptions: predniSONE [Prednisone] 20 mg PO DAILY #3 tab Home Medications: Ambulatory Orders Acetaminophen [Acetaminophen ER] 650 mg PEG Q6H PRN 12/19/15 Benzonatate 100 mg PEG TID PRN 12/19/15 Bisacodyl [Dulcolax] 10 mg MO DAILY PRN 12/19/15 Bupropion HCl [Bupropion HCl Sr] 150 mg PEG DAILY 12/19/15 Diphenhydramine HCl 25 mg PEG Q6H PRN 12/19/15 Famotidine 20 mg PEG BID 12/19/15 Furosemide 40 mg PEG DAILY 12/19/15 Insulin Aspart [Novolog] 0 unit SC DAILY 12/19/15 Melatonin 5 mg PEG BEDTIME 12/19/15 Metoprolol Tartrate 25 mg PEG BID 12/19/15 Polyvinyl Alcohol [Artificial Tears] 1.4 % OP Q6H PRN 12/19/15 Pravastatin Sodium [Pravachol] 20 mg PEG BEDTIME 12/19/15 Sertraline HCl [Zoloft] 150 mg PEG DAILY 12/19/15 Sucralfate 1 gm PEG ACHS 12/19/15 Theophylline 37.5 ml PEG BID 12/19/15 Tramadol HCl 50 mg PEG Q8H PRN 12/19/15 predniSONE [Prednisone] 10 mg PEG DAILY 12/19/15 Budesonide Nebs [Pulmicort Respules] 0.5 mg NEB BID 03/27/18 Chlorhexidine Gluconate (Mouth [Chlorhexidine Gluconate] 15 ml MT BID 03/27/18 Docusate Sodium 100 mg PEG DAILY 03/27/18 Lidocaine HCl (Cardiac) [Lidocaine HCl] 20 mg IV Q6H PRN 03/27/18 Loratadine [Claritin] 10 mg PEG DAILY 03/27/18 Magnesium Hydroxide [Milk Of Magnesia] 30 ml PEG DAILY PRN 03/27/18 Meloxicam 15 mg PEG BEDTIME 03/27/18 Multiple Vitamins W/ Minerals [Multivitamin Adults] 1 tab PEG DAILY 03/27/18 Nystatin (Topical) [Nystatin] 100,000 unit EX BID 03/27/18 Nystatin (Topical) [Nystatin] 100,000 unit EX Q6H PRN 03/27/18 Potassium Chloride Elixir [Kaochlor Liquid] 7.5 ml PEG BID 03/27/18 Sennosides [Senokot] 8.6 mg PEG JOAQUIN-OTH-DAY 03/27/18 Buspirone HCl 10 mg PEG TID 12/08/18 Hydroxyzine Pamoate 50 mg PEG TID PRN 12/08/18 Ipratropium Brom 0.06% Nasal [Atrovent Nasal [place] 0.06%] 1 spray INTRATRACH Q6H 12/08/18 Melatonin 3 mg PEG BEDTIME 12/08/18 Fluconazole Suspension [Diflucan Suspension] 2.5 ml GT DAILY #7.5 ml 04/26/19 Amoxicillin & Pot Clavulanate [Augmentin Tab] 875 mg PO BID 7 Days #14 tab 04/27/19 predniSONE [Prednisone] 20 mg PO DAILY #3 tab 05/14/19 Additional Instructions: the patient is a 73-year-old female presenting to emergency room with what appears to be a viral upper respiratory tract infection. The patient has tested negative for flu. Chest x-ray fails to show any large infiltrate or any evidence of fluid overload. Clinical impression is a mild bronchitis at this point. The patient did receive one small dose of oral prednisone here and is going to be written for 3 more days of 20 mg daily of prednisone to help reduce her reactive airway component. She does need to continue having her breathing treatments. I see no clinical evidence of any bacterial infection at this point. No evidence of any respiratory distress. The patient will likely have another 3-5 days of symptoms. Blood sugars do need to be monitored in light of the steroid usage. She needs to follow back up with the facility doctor in a few days. she is to return to the emergency room for any significant worsening.
[2019-05-14 00:47] VITALS: BP 132/70; TEMP 99.1; O2SAT 100
== END 2019-05-14 00:40 ==
LOC: ER 22:39
DX: J06.9 Acute upper respiratory infection, unspecified (principal); R91.8 Other nonspecific abnormal finding of lung field; F32.9 Major depressive disorder, single episode, unspecified; R56.9 Unspecified convulsions; F03.90 Unspecified dementia, unspecified severity, without behavioral disturbance, psychotic disturbance, mood disturbance, and anxiety; J44.9 Chronic obstructive pulmonary disease, unspecified; I10 Essential (primary) hypertension; E07.9 Disorder of thyroid, unspecified; E11.9 Type 2 diabetes mellitus without complications; K21.9 Gastro-esophageal reflux disease without esophagitis; Z87.891 Personal history of nicotine dependence; Z79.899 Other long term (current) drug therapy; Z79.4 Long term (current) use of insulin; Z99.11 Dependence on respirator [ventilator] status; Z88.5 Allergy status to narcotic agent; Z88.0 Allergy status to penicillin; Z88.2 Allergy status to sulfonamides
CPT/HCPCS: 71045; 87502; 94002; 94770; J7512

== ENCOUNTER → 2019-08-07 | Outpatient (CLI) | payer BC, MEDICARE | DX: R30.0 Dysuria (principal) ==